=== PATIENT | male | born 1935 | race Caucasian/White ===

== ENCOUNTER 2017-03-12 14:05 | Inpatient (IN) | payer OTHER, SELFPAY ==
[~2017-03-12] VITALS: Ht 180.3 cm; Wt 98.9 kg
[2017-03-12 14:05] VITALS: BP 155/61
[~2017-03-12 14:05] MED LIST: ACETAMINOPHEN325 M1 PO; ACTOS 30 MG TAB30 MG PO; ADULT LOW DOSE81 MG PO; ADVAIR 250-501 EACH; ADVAIR 250-501 EACH IH; ADVAIR 250-501 EACH INH; ADVAIR HFA 1112 UNIT INH; AFEDITAB CR60 M1 PO; AFEDITAB CR60 MG PO; ALDACTONE50 MG PO; ALLOPURINOL 30300 M1 PO; ALLOPURINOL 30300 M3 PO; ALPRAZOLAM 0.0.25 M1 PO; AMLODIPINE BESYL5 M1 PO; ANALGESIC325 MG PO; ASPIRIN EC81 M1 PO; AZITHROMYCIN 2250 MG PO; Advair INH; B COMPLETE1 EACH PO; B COMPLEX1 EAC1; B-100 COMPLEX1 EAC1 PO; B12INJ INJECTION; BACTROBAN CREAM30 G1 TOP; CAPOTEN; CARBAMAZEPINE100 MG PO; CARBAMAZEPINE200 M2 PO; CATAPRES0.2 MG PO; CENTRUM SILVER1 EAC2 PO; CIPRO250 M1 PO; CIPROFLOXACIN500 M1 PO; CLONAZEPAM 0.50.5 M1 PO; CLONAZEPAM 1 MG1 M1 PO; CLONAZEPAM PO; COLACE100 MG PO; COZAAR 25 MG TA25 M1 PO; COZAAR 50 MG TA50 M1 PO; COZAAR 50 MG TA50 M2 PO; CRESTOR10 MG PO; CRESTOR5 MG PO; DELTASONE20 MG PO; DEPO-TESTO200 MG/1 M IM; DEPO-TESTO200 MG/1 M INJECTION; DOXAZOSIN MESYLA4 MG PO; DULERA 100 MCG/13 GM INH; DUONEB 2.5-0.5 M3 ML INH; DUONEB 2.5-0.5 M3 ML PO; FISH OIL 1,001000 M2 PO; FISH OIL 1,2001 EAC3 PO; FISH OIL 1,2001 EAC4 PO; FISH OIL500 M1 PO; FISHOIL PO; FLAGYL500 MG PO; FUROSEMIDE 40 M40 MG PO; GABAPENTIN100 MG PO; GEMFIBROZIL 60600 MG PO; GLIPIZIDE ER5 MG PO; GLIPIZIDE5 MG PO; GLUCOTROL5 MG PO; HEALTHY EYES C1 EACH PO; HYDRALAZINE 2525 MG PO; HYDROCODON-ACE1 EAC7 PO; HYDROCODONE-AP1 EAC6 PO; I-CAPS AREDS S1 EACH PO; ICAPS TABLET1 EACH PO; IMDUR 30 MG TAB30 M1; IMDUR 30 MG TAB30 M1 PO; ISOSORBIDE DINI30 MG PO; LAMISIL250 MG PO; LASIX 40 MG TAB40 M1 PO; LASIX 40 MG TAB40 M2 PO; LASIX 40 MG TAB40 MG GT; LASIX 80 MG TAB80 MG PO; LEVAQUIN 250 M250 MG PO; LEVAQUIN 500 M500 M1 PO; LEVAQUIN 500 M500 M2 PO; LEVAQUIN 750 M750 MG PO; LEVOTHROID50 MCG PO; LEVOTHROID75 MCG PO; LEVOTHYROXIN0.112 M1 PO; LEVOTHYROXINE; LEXAPRO 10 MG T10 M1 PO; LEXAPRO PO; LEXAPRO20 MG PO; LIPITOR 20 MG T20 M1 PO; LOPID600 MG PO; LOPRESSOR 50 MG50 M1 PO; LOPRESSOR25 PO; MEDROLDOSEPACK PO; METOLAZONE 2.52.5 M1 PO; METOPROLOL 50 M50 M1 PO; METOPROLOL PO; METOPROLOL SUCC50 MG PO; MIRALAX17 GM PO; MOM PO; NEPHROCAPS SOFT1 CAP PO; NITROGLYCERIN0.4 MG PO; NITROSTAT0.4 M1 SUBLING; NORVASC10 MG PO; NORVASC5 MG PO; NOVOLOG100 UNIT/1 SUBQ; NYSTATIN 1100000 U/M PO; OMEGA-31000 MG PO; OMEPRAZOLE40 MG PO; PLAVIX 75 MG TA75 MG PO; POTASSIUM20 PO; PREDNISONE 10 M10 M1; PREDNISONE 10 M10 M1 PO; PREDNISONE 10 M10 MG PO; PREDNISONE 20 M20 M1 PO; PREDNISONE 20 M20 MG PO; PREDNISONE50 MG PO; PROSCAR 5MG TABL5 MG PO; PROTONIX40 M2 PO; REMERON15 MG PO; RESTORIL15 MG PO; SPIRIVA INH; SPIRONOLACTONE50 MG PO; SYNTHROID75 MCG PO; TEGRETOL XR100 MG PO; TESSALON PERLE100 MG PO; TOPROL XL25 MG PO; TOPROL XL50 MG PO; TRAMADOL 50 MG50 MG PO; TRIAMCINOLONE A80 GM TOP; TRIPHROCAPS SOFT1 MG PO; ULTRA B-100 CO1 EAC1 PO; VITAMIN B COMP1 EAC7 PO; VITAMIN D 5050000 I1 PO; VITAMIN D1000 UNI1 PO; VITAMIN D35000 UNI1 PO; XANAX 0.25 MG0.25 MG PO; ZANTAC 150MG T150 MG PO; ZOFRAN ODT4 MG PO; ZOLOFT 50 MG TA50 M1 PO
[2017-03-12 14:36] LABS: ABSOLUTE EOSINOPHILS 0.1 thou/uL (0.0-0.7); ABSOLUTE LYMPHOCYTES 0.9 thou/uL (0.8-5.3); ABSOLUTE MONOCYTES 0.6 thou/uL (0.0-1.2); ABSOLUTE NEUTROPHILS 4.8 thou/uL (1.6-8.1); BASOPHILS 0.7 %; EOSINOPHILS 1.6 %; HEMATOCRIT 29.7 % (42.0-52.0); HEMOGLOBIN 9.9 gm/dL (14.0-18.0); LYMPHOCYTES 14.2 %; MCH 31.5 pg (26.0-34.0); MCHC 33.4 g/dL (28.0-37.0); MCV 94.4 fL (80.0-100.0); MONOCYTES 9.2 %; MPV 9.6 fl. (7.2-11.1); NUCLEATED RBCS 0 /100WBC; PLATELET COUNT* 175 thou/uL (150-400); POLYS 74.3 %; RBC 3.15 mil/uL (4.50-6.00); RDW-CV 17.3 % (10.5-14.5); WBC 6.5 thou/uL (4.0-11.0)
[2017-03-12 14:44] LABS: INR 1.1; PROTIME 10.7 Seconds (9.20-11.50)
[2017-03-12 14:55] LABS: ANION GAP 10 mmol/L (7-16); BUN 27 mg/dL (7-18); CALCIUM 8.4 mg/dL (8.5-10.1); CHLORIDE 98 mmol/L (98-107); CO2 31 mmol/L (21-32); CREATININE 4.3 mg/dL (0.6-1.3); GLUCOSE 100 mg/dL (70-99); POTASSIUM 4.3 mmol/L (3.5-5.1); SODIUM 139 mmol/L (136-145)
[2017-03-12 14:59] LABS: ALBUMIN 3.6 g/dL (3.4-5.0); ALKALINE PHOSPHATASE 76 U/L (46-116); LIPASE 496 U/L (73-393); MAGNESIUM 1.9 mg/dL (1.8-2.4); NT-PRO BRAIN NAT PEPTIDE 6717 pg/mL (<300); SGOT 24 U/L (15-37); SGPT 18 U/L (30-65); TOTAL BILIRUBIN 0.3 mg/dL (<0.1-1.0); TOTAL PROTEIN 6.7 g/dL (6.4-8.2); TROPONIN-I LEVEL <0.06 ng/mL (<0.06)
--- NOTE | 2017-03-12 15:56 | EKG ---
[place] [address] ELECTROCARDIOGRAM REPORT Name: MERY BARKSDALE Room: [facility]#: [id number] Admission: 03/12/17 Attend Phys: Discharge: Date of : 34 Report #: [id number] THIS REPORT FOR: //name// [facility] ED Test Date: 2017-03-12 Test Time: 14:14:02 Pat Name: MERY BARKSDALE Department: Room: Gender: Unix Developer: : 1935 Requested By: Alfa Vega Order Number: [id number] MD: Raffi Johnson Measurements Intervals [place] Rate: 63 P: 41 [place]: 268 QRS: -15 QRSD: 129 T: 223 QT: 437 QTc: 448 Interpretive Statements Sinus rhythm Multiple ventricular premature complexes Prolonged [place] interval Left bundle branch block Compared to ECG 02/18/2017 16:26:13 Ventricular premature complex(es) now present Electronically Signed On 03-12-2017 15:56:12 APPRENTICE by Raffi Johnson [email or web address] <ELECTRONICALLY SIGNED> By: Raffi Johnson MD, [facility] 03/12/17 1556 1414 141 Raffi Johnson MD, FACC /EPI
[2017-03-12 17:48] VITALS: BP 158/67
[2017-03-12 18:00] VITALS: BP 158/87
[2017-03-12 20:20] VITALS: BP 139/48
[2017-03-12] MEDS ORDERED: METOLAZONE 2.52.5 MG PO (21:08)
[2017-03-12] MEDS ORDERED: TRIPHROCAPS SOFT1 MG PO (21:08)
[2017-03-13 00:02] VITALS: BP 144/53
[2017-03-13 01:17] LABS: HEMATOCRIT 28.3 % (42.0-52.0); HEMOGLOBIN 9.4 gm/dL (14.0-18.0); MCH 31.5 pg (26.0-34.0); MCHC 33.2 g/dL (28.0-37.0); MCV 95.2 fL (80.0-100.0); MPV 9.8 fl. (7.2-11.1); RBC 2.97 mil/uL (4.50-6.00); WBC 6.3 thou/uL (4.0-11.0)
[2017-03-13 01:33] LABS: ANION GAP 9 mmol/L (7-16); BUN 36 mg/dL (7-18); CALCIUM 8.2 mg/dL (8.5-10.1); CHLORIDE 100 mmol/L (98-107); CO2 30 mmol/L (21-32); CREATININE 5.2 mg/dL (0.6-1.3); GLUCOSE 88 mg/dL (70-99); SODIUM 139 mmol/L (136-145); TROPONIN-I LEVEL <0.06 ng/mL (<0.06)
[2017-03-13 08:50] VITALS: BP 155/50
[2017-03-13 11:30] VITALS: BP 152/56
[2017-03-13 15:30] VITALS: BP 175/59
--- NOTE | 2017-03-13 16:24 | EKG ---
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 FITZGERALD : 1935 Requested By: Deyanira Villa Order Number: [id number] Keysha MD: Raffi Johnson Measurements Intervals [place] Rate: 61 P: 50 MS: 278 QRS: -8 QRSD: 143 T: 210 QT: 491 QTc: 495 Interpretive Statements Sinus rhythm Ventricular bigeminy Prolonged [place] interval Probable left atrial enlargement Left bundle branch block Compared to ECG 03/12/2017 14:14:02 No significant changes Electronically Signed On 03-13-2017 16:24:35 EMT/DISPATCHER by Raffi Johnson [email or web address] <ELECTRONICALLY SIGNED> By: Raffi Johnson MD, [facility] 03/13/17 1624 1605 1605 Raffi Johnson MD, [facility] /EPI
[2017-03-13 19:15] VITALS: BP 132/49
[2017-03-14] VITALS: BP 145/50
[2017-03-14 04:00] VITALS: BP 141/52
[2017-03-14 05:13] LABS: HEMATOCRIT 27.4 % (42.0-52.0); HEMOGLOBIN 9.4 gm/dL (14.0-18.0); MCH 32.4 pg (26.0-34.0); MCHC 34.2 g/dL (28.0-37.0); MCV 94.6 fL (80.0-100.0); MPV 10.1 fl. (7.2-11.1); RBC 2.9 mil/uL (4.50-6.00); RDW-CV 17.4 % (10.5-14.5)
[2017-03-14 05:37] LABS: CALCIUM 7.9 mg/dL (8.5-10.1); MAGNESIUM 1.8 mg/dL (1.8-2.4); POTASSIUM 4.6 mmol/L (3.5-5.1)
[2017-03-14 05:38] LABS: CREATININE 7.1 mg/dL (0.6-1.3)
--- NOTE | 2017-03-14 11:00 | CON ---
[address] [address] CONSULTATION Name: APOLONIAMERYBHAVESH ROUSE Room: [address] ADM IN M.R.#: [id number] Admission: 03/12/17 Attend Phys: Butch Rueda Discharge: Date of : 34 Report #: [id number] THIS REPORT FOR: //name// CC: Linda Villa The patient is at [facility] room 209. I am asked to see this 81-year-old gentleman at the request of Dr. Villa for management of end-stage renal disease. CHIEF COMPLAINT: Chest pain. HISTORY OF PRESENT ILLNESS: The patient had chest pain on dialysis. He had some nausea as well. He was taken to the ED and subsequently admitted. The patient was assessed as having acute pancreatitis in addition to his chronic diagnoses. He is receiving pain meds. The patient is well known to me from multiple prior admissions. He has a past medical history of CKD stage IV until he progressed to ESRD this past fall and started dialysis. He has COPD, type 2 DM. He has had a fistula placed in his left forearm. He has had recurrent admissions prior to starting dialysis for shortness of air and pulmonary edema. PAST MEDICAL HISTORY: He has combined systolic and diastolic CHF, hypertension, history of small-bowel obstruction, CAD with CABG 20 years ago, hip replacement, neuropathy, depression and cholecystectomy. FAMILY HISTORY: Not remarkable at his age of 81. SOCIAL HISTORY: He is a former tobacco user. No alcohol or recreational drugs. ALLERGIES: SULFA. RECENT MEDICATIONS: Have included Spiriva 1 inhalation daily, gabapentin 100 mg t.i.d., Advair Diskus 250/50 one inhalation b.i.d., doxazosin 2 mg b.i.d., carbamazepine 200 mg 2 tabs b.i.d., levothyroxine 0.112 mg daily, finasteride 5 mg daily, acetaminophen/hydrocodone 5/325 one b.i.d., folic acid and B complex and C in the form of Nephrocaps 1 daily, furosemide 80 mg b.i.d., mirtazapine 15 mg tablets 2 daily, Triphrocaps 1 mg daily, hydralazine 25 mg 2 q.i.d., fish oil 1200 mg daily, Nitrostat 0.4 mg subQ daily p.r.n., metoprolol XL 25 mg of succinate daily, gemfibrozil 600 mg daily, clonazepam 0.5 mg b.i.d., allopurinol 150 mg daily, aspirin 81 mg enteric coated daily, atorvastatin 20 mg daily. REVIEW OF SYSTEMS: HEENT: No recent changes in vision or hearing. CARDIAC: He has had some chest and upper abdomen discomfort. PULMONARY: Denies any shortness of air. GASTROINTESTINAL: Upper abdominal and lower chest pain, no nausea, [place] [address] CONSULTATION Name: MERY BARKSDALE Room: [address] IN M.R.#: [id number] Admission: 03/12/17 Attend Phys: Butch Rueda Discharge: Date of : 34 Report #: [id number] diarrhea. GENITOURINARY: ESRD, no new symptoms. HEMATOLOGIC AND LYMPHATIC: Anemia, CKD, no malignancies. MUSCULOSKELETAL: Weakness. PSYCHIATRIC: Negative. ENDOCRINE: Positive diabetes. No thyroid disease. NEUROLOGIC: No TIA, CVA, Parkinson's disease or seizure disorder. He does have neuropathy. His other 14-point review of systems is as above. PHYSICAL EXAMINATION: GENERAL: He does awaken and a bit confused. VITAL SIGNS: Show that he is presently afebrile, heart rate 50s, respirations 18, blood pressure 152/56. HEENT: He is normocephalic, atraumatic. CHEST: Generally clear. HEART: S1, S2. No rubs. ABDOMEN: Soft, positive bowel sound. EXTREMITIES: No edema. Negative Homans. His femorals are 2+ distally. Extremities perfused. NEUROLOGIC: Cranial nerves, sensory, motor appear to be at recent baseline. LABORATORY DATA: Shows a white count of 6300, hemoglobin 9.4, hematocrit 28.3, platelets 159,000. Coags show PT of 10.7, INR 1.1. White count 6300, hemoglobin 9.4, hematocrit 28.3, platelets 159,000. IMAGING STUDIES: Include a chest x-ray that shows IJ double lumen central line unchanged on the right. He does not have any evidence of CHF. He has clearing of his prior noted right basilar infiltrate. IMPRESSION: 1. Chest and abdominal discomfort, possible pancreatitis per primary service being evaluated. 2. SSS with abnormal EKG on admission. 3. End-stage renal disease, on Friday, Friday, Friday dialysis. He did dialyze yesterday. 4. Hypertension. 5. Type 2 diabetes mellitus. 6. Neuropathic pain. 7. Anemia. 8. Chronic kidney disease. 9. History of ischemic cardiomyopathy. 10. Hyperlipidemia. 11. Chronic obstructive pulmonary disease. 12. History of atrial fibrillation. 13. Coronary artery disease with coronary artery bypass surgery over 20 [place] [address] CONSULTATION Name: MERY BARKSDALE Room: [address] IN [facility].#: [id number] Admission: 03/12/17 Attend Phys: Butch Rueda Discharge: Date of : 34 Report #: [id number] 14. Chronic systolic congestive heart failure. PLAN: We will manage renal and dialysis needs. He is due for dialysis tomorrow. We will follow labs. Further recommendations to follow. <ELECTRONICALLY SIGNED> By: Amaya Hennessy MD 03/14/17 1100 1244 1549Amaya Hennessy MD /nt
[2017-03-14 11:31] VITALS: BP 144/49
[2017-03-14 18:02] VITALS: BP 137/58
[2017-03-14 20:00] VITALS: BP 131/44
[2017-03-15] VITALS: BP 120/50
[2017-03-15 04:00] VITALS: BP 130/47
[2017-03-15 05:35] LABS: ALBUMIN 3.2 g/dL (3.4-5.0); CALCIUM 8.4 mg/dL (8.5-10.1); MAGNESIUM 1.9 mg/dL (1.8-2.4); PHOSPHORUS* 5.3 mg/dL (2.5-4.9); POTASSIUM 5.2 mmol/L (3.5-5.1)
[2017-03-15 05:40] LABS: CREATININE 5.8 mg/dL (0.6-1.3)
[2017-03-15 06:35] LABS: HEMATOCRIT 30.2 % (42.0-52.0); MCH 31.6 pg (26.0-34.0); MCHC 33.1 g/dL (28.0-37.0); MCV 95.6 fL (80.0-100.0); MPV 9.5 fl. (7.2-11.1); RBC 3.16 mil/uL (4.50-6.00); RDW-CV 18.1 % (10.5-14.5); WBC 6.3 thou/uL (4.0-11.0)
[2017-03-15 08:00] VITALS: BP 124/48
[2017-03-15 11:30] VITALS: BP 118/50
[2017-03-15 12:48] VITALS: BP 118/50
[2017-03-15] MEDS ORDERED: TOPROL XL50 MG PO (14:22)
[2017-04-07] MEDS ORDERED: REMERON15 MG PO (09:29)
[2017-04-07] MEDS ORDERED: CARBAMAZEPINE200 M5 PO (09:30)
[2017-04-07] MEDS ORDERED: KLONOPIN0.5 MG PO (09:31)
[2017-04-07] MEDS ORDERED: CALCIUM ACETAT667 MG PO (09:31)
[2017-04-07] MEDS ORDERED: NORCO 5-325 TA1 EACH PO (09:32)
== END 2017-03-15 15:45 | disposition home or self-care (01) | DRG 438 ==
LOC: M.ERS 14:05 → M.2W 16:19 → M.TBA-ER 16:19 → M.2W 17:18
PROVIDERS: Emergency Medicine Emergency Medical Services; Internal Medicine; ADMIT Internal Medicine
DX: K85.90 Acute pancreatitis without necrosis or infection, unspecified (principal); N18.6 End stage renal disease; I13.2 Hypertensive heart and chronic kidney disease with heart failure and with stage 5 chronic kidney disease, or end stage renal disease; I50.22 Chronic systolic (congestive) heart failure; I49.5 Sick sinus syndrome; E11.22 Type 2 diabetes mellitus with diabetic chronic kidney disease; E11.40 Type 2 diabetes mellitus with diabetic neuropathy, unspecified; F32.9 Major depressive disorder, single episode, unspecified; Z96.641 Presence of right artificial hip joint; I25.5 Ischemic cardiomyopathy; I25.10 Atherosclerotic heart disease of native coronary artery without angina pectoris; J44.9 Chronic obstructive pulmonary disease, unspecified; I49.3 Ventricular premature depolarization; E78.5 Hyperlipidemia, unspecified; D63.1 Anemia in chronic kidney disease; I48.91 Unspecified atrial fibrillation; Z99.2 Dependence on renal dialysis; Z88.2 Allergy status to sulfonamides; Z95.1 Presence of aortocoronary bypass graft; Z95.5 Presence of coronary angioplasty implant and graft; Z87.891 Personal history of nicotine dependence; Z90.49 Acquired absence of other specified parts of digestive tract; Z79.82 Long term (current) use of aspirin; Z82.49 Family history of ischemic heart disease and other diseases of the circulatory system; Z80.9 Family history of malignant neoplasm, unspecified

== ENCOUNTER → 2017-04-15 | Day surgery (SDC) | payer OTHER, SELFPAY ==
[~2017-04-15] MED LIST changes: +CALCIUM ACETAT667 MG PO; +CARBAMAZEPINE200 M5 PO; +CEFUROXIME500 MG PO; +KLONOPIN0.5 MG PO; +METOLAZONE 2.52.5 MG PO; +NORCO 5-325 TA1 EACH PO; +VANCO 500500 MG/100 IV; +ZOFRAN4 MG PO
--- NOTE | 2017-04-25 16:00 | OP ---
[facility] [address] [place] [address] OPERATIVE REPORT Name: APOLONIAMERY ROUSE Room: [facility].#: [id number] Admission: 04/15/17 Attend Phys: Saman Block Discharge: Date of : 34 Report #: [id number] THIS REPORT FOR: //name// CC: Sean Bundy DATE OF SERVICE: 04/15/2017 PREOPERATIVE DIAGNOSIS: End-stage renal disease, requiring hemodialysis. POSTOPERATIVE DIAGNOSIS: End-stage renal disease, requiring hemodialysis. SURGEON: Sean Montes DO MANAGER ADVANCED: Ivelisse Tirado PA-C PROCEDURE: Left upper extremity brachiobasilic AV graft. ESTIMATED BLOOD LOSS: 50 mL. SPECIMEN: None. COMPLICATIONS: None. CONDITION: Stable. DISPOSITION: Home. INDICATIONS FOR THE PROCEDURE AND CONSENT: The patient is an 81-year-old male with end-stage renal disease, requiring hemodialysis. The patient had a brachiocephalic AV fistula, which failed to mature and developed due to outflow cephalic vein, diminutive vein. This was determined on a followup fistulogram. Recommendation for left upper extremity AV graft was made. Risks and benefits were discussed including infection, bleeding, need for additional procedures including additional dialysis access. The patient wished to proceed, was consented and scheduled. PROCEDURE IN DETAIL: After timeout was performed, the patient was placed in supine position with sterile prep and drape of the left upper extremity. Ultrasound was utilized to determine the location of the brachial artery proximal to the previous AV fistula as well to assure that there was adequate axillary vein outflow. The axillary vein was identified and noted to be compressible. The basilic vein was noted to be large. I did consider a primary basilic vein AV fistula. However, with the patient's age, requiring secondary procedures such as mobilization and transposition would likely be necessary and decided that continuing with the plan for AV graft [place] [address] OPERATIVE REPORT Name: MERY BARKSDALE Room: [facility]#: [id number] Admission: 04/15/17 Attend Phys: Saman Block Discharge: Date of : 34 Report #: [id number] made 2 longitudinal incisions, one overlying the basilic, axillary vein junction and overlying the brachial artery. Dissection was carried down to the brachial artery using Bovie electrocautery and Metzenbaum scissors. The brachial artery was controlled proximally and distally with vessel loops. The attention was then turned to the outflow basilic vein. This was fairly deep, somewhat difficult to identify but I did identify the basilic vein. It was noted to be large and compressible and healthy. I then controlled it proximally and distally with vessel loops. I performed tunneling with a 10 mm head between the 2 incisions. I then tunneled a 4-7 mm tapered Acuseal graft between the two. Then I systemically heparinized the patient with 6000 units of heparin. I dressed the inflow anastomosis first. I clamped the brachial artery proximally and distally with small profunda clamps and an 11 blade scalpel and Kilpatrick scissors were used to make longitudinal arteriotomy. The graft was fashioned to the gan and then an end-to-side fashion was sutured in place with 5-0 Prolene. Blood flow was restored through the brachial artery and the anastomosis was noted to be hemostatic. I clamped the graft just beyond the anastomosis. I then flushed the graft with hep saline. I then turned to the outflow anastomosis. The basilic vein was controlled proximally and distally with vessel loops. A longitudinal venotomy was made with 11 blade and Kilpatrick scissors and end-to-side anastomosis then created using again 5-0 Prolene. Blood flow was then restored through the graft. The anastomosis was noted to be hemostatic. There was a thrill beyond the outflow anastomosis. Doppler signals above and below the graft demonstrated only mild change in hemodynamics above and below the anastomosis. The radial artery demonstrated a signal. They did not augment significantly with graft compression. Being satisfied of the graft, both incisions were copiously irrigated with antibiotic saline and closed in layers using 2-0 Vicryl, 3-0 Vicryl and 4-0 Monocryl suture. Dermabond dressings were applied. The patient tolerated the procedure well. Lap, needle, and instrument counts correct. <ELECTRONICALLY SIGNED> By: Sean Montes DO 04/25/17 1600 1623 1730Sean Montes DO /nt
== END | disposition home or self-care (01) ==
LOC: M.SUR 08:50
DX: I13.11 Hypertensive heart and chronic kidney disease without heart failure, with stage 5 chronic kidney disease, or end stage renal disease (principal); N18.6 End stage renal disease; I25.10 Atherosclerotic heart disease of native coronary artery without angina pectoris; I50.32 Chronic diastolic (congestive) heart failure; E11.22 Type 2 diabetes mellitus with diabetic chronic kidney disease; D64.9 Anemia, unspecified; J44.9 Chronic obstructive pulmonary disease, unspecified; Z88.2 Allergy status to sulfonamides; Z99.2 Dependence on renal dialysis; Z79.82 Long term (current) use of aspirin; Z79.899 Other long term (current) drug therapy

== ENCOUNTER 2017-04-21 16:30 | Inpatient (IN) | payer OTHER, SELFPAY ==
[~2017-04-21] VITALS: Ht 175.3 cm; Wt 98.9 kg
--- NOTE | ~2017-04-21 | EKG ---
[place] [address] ELECTROCARDIOGRAM REPORT Name: MERY BARKSDALE Room: [place] [address] ADM IN M.R.#: [id number] Admission: 04/21/17 Attend Phys: Grupo Estrella MD Discharge: Date of : 34 Report #: [id number] THIS REPORT FOR: //name// [facility] ED Test Date: 2017-04-21 Test Time: 16:42:08 Pat Name: MERY BARKSDALE Department: Room: [place] [address] Gender: M Social Professionals: [address] : 1935 Requested By: Grupo Estrella Order Number: [id number] Reading MD: Measurements Intervals [place] Rate: 104 P: 217 DC: 165 QRS: 29 QRSD: 148 T: 238 QT: 390 QTc: 513 Interpretive Statements Sinus or ectopic atrial tachycardia Left bundle branch block Compared to ECG 03/12/2017 16:05:56 Sinus rhythm no longer present Ventricular premature complex(es) no longer present First degree AV block no longer present [email or web address] By: 164 1642 [place] /EPI
[~2017-04-21 16:30] MED LIST changes: -CEFUROXIME500 MG PO; -VANCO 500500 MG/100 IV; -ZOFRAN4 MG PO
[2017-04-21 16:41] VITALS: BP 100/43
[2017-04-21 17:14] LABS: HEMATOCRIT 36.1 % (42.0-52.0); HEMOGLOBIN 11.9 gm/dL (14.0-18.0); MCH 33.1 pg (26.0-34.0); MCV 100.6 fL (80.0-100.0); MPV 10.2 fl. (7.2-11.1); NUCLEATED RBCS 0 /100WBC; PLATELET COUNT* 156 thou/uL (150-400); RBC 3.59 mil/uL (4.50-6.00); RDW-CV 17.8 % (10.5-14.5); WBC 12.2 thou/uL (4.0-11.0)
[2017-04-21 17:24] LABS: APTT 26.6 Seconds (25.0-31.3); CALCIUM 8.8 mg/dL (8.5-10.1); CREATININE 3.9 mg/dL (0.6-1.3); INR 1.1; POTASSIUM 5.1 mmol/L (3.5-5.1)
[2017-04-21 17:28] LABS: ALBUMIN 3.5 g/dL (3.4-5.0); TOTAL BILIRUBIN 0.3 mg/dL (<0.1-1.0); TOTAL PROTEIN 7.1 g/dL (6.4-8.2)
[2017-04-21 17:50] LABS: ABSOLUTE LYMPHOCYTES 1.5 thou/uL (0.8-5.3); ABSOLUTE MONOCYTES 0.6 thou/uL (0.0-1.2); ABSOLUTE NEUTROPHILS 10.1 thou/uL (1.6-8.1)
[2017-04-21 17:51] LABS: PLATELET ESTIMATE ADEQUATE
[2017-04-21 18:37] LABS: INFLUENZA A ANTIGEN None Detected (None Detect); INFLUENZA B ANTIGEN None Detected (None Detect)
--- NOTE | 2017-04-21 20:25 | NUR ---
CALL PLACED TO DR SAWANT CONCERNING PT'S LOWER BP. APRESOLINE MEDICATION HELD
[2017-04-21 20:50] VITALS: BP 133/35
[2017-04-22] VITALS: BP 104/35
[2017-04-22 04:00] VITALS: BP 126/41
[2017-04-22 05:35] LABS: HEMATOCRIT 36.7 % (42.0-52.0); HEMOGLOBIN 11.9 gm/dL (14.0-18.0); MCHC 32.5 g/dL (28.0-37.0); MCV 101.8 fL (80.0-100.0); MPV 11.2 fl. (7.2-11.1); NUCLEATED RBCS 0 /100WBC; PLATELET COUNT* 163 thou/uL (150-400); RDW-CV 18.1 % (10.5-14.5); WBC 21.1 thou/uL (4.0-11.0)
--- NOTE | 2017-04-22 05:46 | NUR ---
PT ADMITTED FROM ER. HISTORY AND ASSESSMENT COMPLETE. SR ON MONITOR. DIALYSIS PORT TO R CHEST. DIALYSIS M/W/F. HOME C PAP PLACED BY RT. O2 2L NC WHILE AWAKE. PT FEBRILE UNTIL EARLY THIS AM,102.3. NEW IV PLACED AFTER PT DISLODGED PREVIOUS ONE. DENIES PAIN. FALL PRECAUTIONS IN PLACE INCLUDING BED ALARM. CALL LIGHT IN REACH. BED IN LOWEST POSITION. PROGRESSING TOWARDS GOALS.
[2017-04-22 05:59] LABS: CALCIUM 8.8 mg/dL (8.5-10.1)
[2017-04-22 06:06] LABS: CREATININE 5.2 mg/dL (0.6-1.3)
[2017-04-22 06:28] LABS: ABSOLUTE LYMPHOCYTES 1.1 thou/uL (0.8-5.3); ABSOLUTE MONOCYTES 0.2 thou/uL (0.0-1.2); ABSOLUTE NEUTROPHILS 19.8 thou/uL (1.6-8.1); ANISOCYTOSIS 1+; PLATELET ESTIMATE ADEQUATE; POIKILOCYTOSIS 1+
[2017-04-22 08:00] VITALS: BP 117/31
[2017-04-22 11:35] VITALS: BP 106/40
--- NOTE | 2017-04-22 13:36 | NUR ---
CM SPOKE TO THE PATIENT TO DISCUSS HOME SITUATION, DISCHARGE PLANNING, AND TO INFORM OF THE ROLE OF CM. PATIENT ALERT, ORIENTED, AND INDEPENDENT WITH ADL'S. PATIENT RESIDES AT HOME ALONE. PATIENT DRIVES. PATIENT RECIEVES DIALYSIS -- AT [facility] AND DRIVES HIMSELF TO HIS APPOINTMENTS. PATIENT HAS HOME O2 PROVIDED BY [facility]. PATIENT HAS A LIFE ALERT. PATIENT PLANS TO RETURN HOME AT D/C AND IS OPEN TO . CM WILL REMAIN AVAILABLE TO ASSIST AND FOLLOW NEEDED.
[2017-04-22 13:59] LABS: URINE BILIRUBIN NEGATIVE (Negative); URINE BLOOD TRACE (Negative); URINE CLARITY CLEAR; URINE COLOR YELLOW; URINE GLUCOSE-RANDOM TRACE (Negative); URINE KETONES TRACE (Negative); URINE LEUKOCYTES-REFLEX NEGATIVE (Negative); URINE NITRITE-REFLEX NEGATIVE (Negative); URINE PROTEIN 3+ (Negative); URINE SPECIFIC GRAVITY 1.025 (1.005-1.030); URINE UROBILINOGEN 0.2 E.U./dl (0.2-1.0)
[2017-04-22 14:14] LABS: SQUAMOUS 0-3 Few /LPF (0-3); URINE RBC 0-2 Rare /HPF (0-2); URINE WBC-REFLEX 0-5 Rare /HPF (0-5)
[2017-04-22 14:15] LABS: BACTERIA-REFLEX 1-9 Few /HPF (None Seen); MUCUS 0-3 Light strn/LPF (None Seen)
[2017-04-22 14:16] LABS: CRYSTALS None Seen /LPF (None Seen); FINE GRANULAR CASTS 0-3 Few /LPF (None Seen)
[2017-04-22 15:59] VITALS: BP 143/47
--- NOTE | 2017-04-22 18:25 | NUR ---
ASSUMED RESPONSIBILITY OF PT THIS AM PT IS ALERT AND ORIENTED BUT FORGETFUL AT TIMES PT IS ON 2L NC SOA NOTED WHEN NOT SITTING UP PT WITH GOOD APPETITE NO ORDERS FOR ACCUCHECKS ACHS PT STATES HE TAKES IT AT HOME BUT IT'S CONTROLLED WITH DIET MRSA AND URINE COLLECTED, WAITING ON SPUTUM STILL 1D OR BBB ON THE MONITOR UP SBA WITH A WALKER TO BSC OR TOILET UP IN CHAIR FOR ABOUT AN HOUR DENIES ANY PAIN OR DISCOMFORT
[2017-04-22 20:00] VITALS: BP 146/43
[2017-04-23] VITALS: BP 141/48
[2017-04-23 04:00] VITALS: BP 157/62
--- NOTE | 2017-04-23 05:27 | NUR ---
PT CARE ASSUMED AFTER REPORT. ASSESSMENT COMPLETE. SR/1ST DEGREE ON MONITOR. O2 2L NC. DENIES PAIN. CONTACT PRECAUTIONS INITIATED R/T +MRSA. FALL PRECAUTIONS IN PLACE INCLUDING BED ALARM. CALL LIGHT IN PLACE. BED IN LOWEST POSITION. PROGRESSING TOWARDS GOALS.
[2017-04-23 05:29] LABS: ABSOLUTE LYMPHOCYTES 0.6 thou/uL (0.8-5.3); ABSOLUTE MONOCYTES 0.3 thou/uL (0.0-1.2); ABSOLUTE NEUTROPHILS 12.9 thou/uL (1.6-8.1); BASOPHILS 0.1 %; HEMATOCRIT 32.3 % (42.0-52.0); HEMOGLOBIN 10.6 gm/dL (14.0-18.0); LYMPHOCYTES 4.2 %; MCH 33.3 pg (26.0-34.0); MCHC 32.8 g/dL (28.0-37.0); MCV 101.5 fL (80.0-100.0); MONOCYTES 2.5 %; MPV 10.8 fl. (7.2-11.1); NUCLEATED RBCS 0 /100WBC; PLATELET COUNT* 143 thou/uL (150-400); POLYS 93.2 %; RBC 3.18 mil/uL (4.50-6.00); RDW-CV 18.3 % (10.5-14.5); WBC 13.8 thou/uL (4.0-11.0)
[2017-04-23 05:44] LABS: CALCIUM 8.3 mg/dL (8.5-10.1); TOTAL BILIRUBIN 0.3 mg/dL (<0.1-1.0); TOTAL PROTEIN 6.5 g/dL (6.4-8.2)
[2017-04-23 05:52] LABS: CREATININE 6.4 mg/dL (0.6-1.3)
[2017-04-23 08:00] VITALS: BP 160/66
[2017-04-23 11:30] VITALS: BP 157/62
--- NOTE | 2017-04-23 11:33 | CON ---
[address] [address] CONSULTATION Name: MERY BARKSDALE Room: [place] [address] ADM IN M.R.#: [id number] Admission: 04/21/17 Attend Phys: Grupo Estrella MD Discharge: Date of : 34 Report #: [id number] THIS REPORT FOR: //name// CC: Grupo Bundy DATE OF SERVICE: 04/22/2017 ATTENDING PHYSICIAN: Grupo Estrella M.D. REASON FOR EVALUATION: Pneumococcal pneumonitis. HISTORY OF PRESENT ILLNESS: Chart reviewed, patient examined. This is an 81-year-old gentleman with fairly extensive medical history, has known chronic obstructive pulmonary disease, has cardiomyopathy with history of congestive heart failure, presented with progressive dyspnea, weakness, did apparently have a fairly abrupt onset of shaking chills, and subsequently high fevers. He was found to be quite ill. As part of the evaluation, creatinine was elevated at 3.9. Chest x-ray showed cardiomegaly, scattered patchy bilateral opacities. Lactic acid was 1.7. Initially, blood cultures were collected, now with growth of gram-positive diplococci. He is overall feeling somewhat better. He is afebrile this a.m. after T-max of 102.5. He is not encephalopathic, denies significant gastrointestinal-related complaints. ALLERGIES: SULFA, WHICH CAUSES PRURITUS. CURRENT MEDICATIONS: Include vancomycin, levothyroxine, aspirin, allopurinol, pantoprazole, calcium acetate, gabapentin, clonazepam, mirtazapine, atorvastatin and did receive a dose of ceftriaxone, Tamiflu and levofloxacin previously. PAST MEDICAL HISTORY: As noted above, has some vasculopathy with known coronary artery disease, previous aortocoronary bypass grafting, some stenting, has diabetes mellitus, chronic obstructive pulmonary disease, supplemental O2 at 2 liters. Does have end-stage renal disease, on thrice weekly hemodialysis, hypertension, peripheral neuropathy, depression. SOCIAL HISTORY: Nonsmoker, no ethanol. FAMILY HISTORY: Noncontributory. REVIEW OF SYSTEMS: As above. PHYSICAL EXAMINATION: GENERAL: He is pleasant, alert, cooperative, in mild to moderate distress, appears somewhat chronically ill, mildly undernourished. VITAL SIGNS: Temperature max 102.5, more recently 99, pulse 72, [place] [address] CONSULTATION Name: MERY BARKSDALE Room: [address] IN [facility]#: [id number] Admission: 04/21/17 Attend Phys: Grupo Estrella MD Discharge: Date of : 34 Report #: [id number], blood pressure 106/40. SKIN: Warm. NECK: Supple. LUNGS: Few scattered coarse breath sounds. HEART: Regular. I do not appreciate any murmur. ABDOMEN: Soft, nontender. It is obese, distended. GENITOURINARY: Deferred. RECTAL: Deferred. LABORATORY DATA: Electrolytes: Sodium 142, potassium 5.0, chloride 103, bicarbonate is 26, anion gap of 13, BUN and creatinine 37 and 5.2. CBC: White count of 21.1, H and H 11.9 and 36.7, platelets of 163. Influenza antigen was negative. Lactic acid 1.7. Liver functions otherwise unremarkable. Albumin of 3.5, total protein 7.1. ASSESSMENT: Pneumococcal septicemia, probably on the basis of initial pneumonitis, is certainly a somewhat classical presentation with high fevers and shaking chills. We will dose with ceftriaxone. We will await confirmation via the blood cultures, may well had influenza as a prodromal illness as well. <ELECTRONICALLY SIGNED> By: Alok Aranda MD 04/23/17 1133 1204 1909Joarnulfo Aranda MD /nt
--- NOTE | 2017-04-23 14:27 | NUR ---
CONTINUE TO FOLLOW. PT STATES HE IS STILL GETTING HH AND THAT [facility] SEES HIM ALSO. CALL TO [facility]. CONFIRMED PT IS CURRENT WITH THEM. THEY WILL NEED ORDERS CALLED AND FAXED AT [place]. CALL TO [facility], LEFT MESSAGE. PT STATES HE HAS BEEN MANAGING FAIRLY WELL AT HOME. PLANS TO RETURN HOME AT [place]. WILL FOLLOW
[2017-04-23 15:44] VITALS: BP 120/39
--- NOTE | 2017-04-23 15:50 | 2DMMODE ---
[place] [address] 2 D/M-MODE ECHOCARDIOGRAM Name: MERY BARKSDALE Room: [place] [address] ADM IN [facility]#: [id number] Admission: 04/21/17 Attend Phys: Grupo Estrella, Discharge: Date of : 34 Date of Service: 04/23/17 1550 Report #: [id number] THIS REPORT FOR: //name// APPROVED REPORT Study performed: 04/23/2017 14:29:03 EXAM: Comprehensive 2D, Doppler, and color-flow Echocardiogram Patient Location: In-Patient Room #: [facility] Status: routine BSA: 2.14 HR: 64 bpm BP: 157/62 mmHg Rhythm: NSR Other Information Study Quality: Good Indications Sepsis Dyspnea 2D Dimensions LVEF(%): 41.55 (>50%) IVSd: 11.46 (7-11mm) LVOT Diam: 19.72 (18-24mm) LVDd: 51.86 mm PWd: 11.58 (7-11mm) Ascending Ao: 31.68 (22-36mm) LVDs: 41.23 (25-40mm) Aortic Root: 30.84 mm Farrar's LVEF: 41.55 % Volumes Left Atrial Volume (Systole) LA ESV Index: 28.30 mL/m2 Aortic Valve AoV Peak Carlitos.: 1.27 m/s AO Peak Gr.: 6.40 mmHg LVOT Max P.76 mmHg AO Mean Gr.: 3.66 mmHg LVOT Mean P.63 mmHg LVOT Max V: 0.83 m/s AO V2 VTI: 29.30 cm LVOT Mean V: 0.61 m/s SANDY (VTI): 2.22 cm2 LVOT V1 VTI: 21.33 [place] [address] 2 D/M-MODE ECHOCARDIOGRAM Name: MERY BARKSDALE Room: [address] IN .R.#: [id number] Admission: 04/21/17 Attend Phys: Grupo Estrella, Discharge: Date of : 34 Date of Service: 04/23/17 1550 Report #: [id number] E/A Ratio: 1.09 MV Decel. Time: 194.76 ms MV E Max Carlitos.: 1.05 m/s MV PHT: 56.48 ms MVA (PHT): 3.90 cm2 TDI E/Lateral E': 8.75 E/Medial E': 15.00 Medial E' Carlitos.: 0.07 m/s Lateral E' Carlitos.: 0.12 m/s Pulmonary Valve PV Peak Carlitos.: 1.23 m/s PV Peak Gr.: 6.01 mmHg Tricuspid Valve TR Peak Gr.: 27.02 mmHg RVSP: 32.00 mmHg Left Ventricle The left ventricle is normal size. There is normal LV segmental wall motion. There is normal left ventricular wall thickness. The left ventricular systolic function is normal. The left ventricular ejection fraction is within the normal range. LVEF is 60%. The left ventricular diastolic function is normal. Right Ventricle The right ventricle is normal size. The right ventricular systolic function is normal. Atria The left atrium size is normal. The right atrium size is normal. Aortic Valve Mild aortic valve sclerosis. No aortic regurgitation is present. There is no aortic valvular stenosis. Mitral Valve Mild mitral annular calcification. Mild mitral regurgitation. No evidence of mitral valve stenosis. Tricuspid Valve The tricuspid valve is normal in structure. Mild tricuspid regurgitation. The RVSP is 30-35 mmHg. Pulmonic Valve The pulmonary valve is normal in structure. [place] [address] 2 D/M-MODE ECHOCARDIOGRAM Name: MERY BARKSDALE Room: [address] IN ..#: [id number] Admission: 04/21/17 Attend Phys: Grupo Estrella, Discharge: Date of : 34 Date of Service: 04/23/17 1550 Report #: [id number] regurgitation. Great Vessels The aortic root is normal in size. IVC is normal in size and collapses with >50% inspiration Pericardium There is no pericardial effusion. <Conclusion> There is normal left ventricular wall thickness. The left ventricular systolic function is normal. The left ventricular ejection fraction is within the normal range. LVEF is 60%. The left ventricular diastolic function is normal. The right ventricle is normal size. The left atrium size is normal. Mild aortic valve sclerosis. No aortic regurgitation is present. There is no aortic valvular stenosis. Mild mitral annular calcification. Mild mitral regurgitation. No evidence of mitral valve stenosis. The tricuspid valve is normal in structure. Mild tricuspid regurgitation. The RVSP is 30-35 mmHg. IVC is normal in size and collapses with >50% inspiration There is no pericardial effusion. There is normal LV segmental wall motion. <ELECTRONICALLY SIGNED> By: Raffi Johnson MD, FACC 04/23/17 1550 1550 1550 Raffi Johnson MD, FACC /INF
--- NOTE | 2017-04-23 19:43 | NUR ---
ASSUMED RESPONSIBILITY OF PT THIS AM PT IS ALERT AND ORIENTED BUT FORGETFUL AND CONFUSED AT TIMES 'LAUGHS IT OUT' DIALYSIS DONE TODAY WITH 3L TAKEN OFF PT DID NOT HAVE FEVER TODAY BLOOD PRESSURES WERE BETTER POSITIVE FOR MRSA ACHS NOW AND INSULIN SLIDING SCALE O2 AT 2L NC AND HOME CPAP AT NIGHT DENIES ANY PAIN
[2017-04-23 20:00] VITALS: BP 135/43
[2017-04-24] VITALS (7 sets, daily range): BP systolic 127–154; BP diastolic 40–56
[2017-04-24 02:07] LABS: HEPATITIS B SURFACE AG Negative (Negative)
--- NOTE | 2017-04-24 05:20 | NUR ---
PT CARE ASSUMED AFTER REPORT. ASSESSMENT COMPLETE. SR/SB ON MONITOR. O2 2L NC. DENIES PAIN. FALL PRECAUTIOS IN PLACE INCLUDING BED ALARM. CALL LIGHT IN REACH. BED IN LOWEST POSITION. SLOWLY PROGRESSING TOWARDS GOALS.
[2017-04-24 05:31] LABS: ABSOLUTE LYMPHOCYTES 0.6 thou/uL (0.8-5.3); ABSOLUTE MONOCYTES 0.6 thou/uL (0.0-1.2); ABSOLUTE NEUTROPHILS 8.7 thou/uL (1.6-8.1); BASOPHILS 0.4 %; HEMATOCRIT 33.5 % (42.0-52.0); HEMOGLOBIN 11.2 gm/dL (14.0-18.0); LYMPHOCYTES 6.5 %; MCH 33.7 pg (26.0-34.0); MCHC 33.3 g/dL (28.0-37.0); MCV 101.1 fL (80.0-100.0); MONOCYTES 5.5 %; MPV 10.8 fl. (7.2-11.1); NUCLEATED RBCS 0 /100WBC; PLATELET COUNT* 149 thou/uL (150-400); POLYS 87.6 %; RBC 3.31 mil/uL (4.50-6.00); WBC 9.9 thou/uL (4.0-11.0)
[2017-04-24 05:50] LABS: CALCIUM 8.2 mg/dL (8.5-10.1); TOTAL BILIRUBIN 0.2 mg/dL (<0.1-1.0); TOTAL PROTEIN 6.6 g/dL (6.4-8.2)
[2017-04-24 05:57] LABS: CREATININE 4.4 mg/dL (0.6-1.3)
--- NOTE | 2017-04-24 18:00 | NUR ---
PT. STABLE THROUGH OUT THE DAY. UP TO CHAIR FOR MEALS X2, TOLERATED WELL. NO COMPLAINTS OF PAIN/SOB. APPETITE GOOD, PT. COMPLETING MEALS AND SNACKS PROVIDED. TELE MONITOR REMOVED PER ORDERS. PER DR. ANNA WOULD LIKE BLOOD CULTURES TO BE DRAWN FROM DIALYSIS CATHETER DURING DIALYSIS TOMORROW (ORDER PLACED). UPDATE GIVEN TO PT. DAUGHTER VIA PHONE THIS MORNING. PT. TRANSFERED UP TO MED/SURG UNIT, ALL BELONGINGS ACCOUNTED FOR. REPORT GIVEN TO FERNANDEZ APARICIO TO CONTINUE CARE.
--- NOTE | 2017-04-24 19:27 | NUR ---
PATIENT TO ROOM 311 @ 1835 THIS EVENING. A/O X 4, DENIES PAIN, NO DISTRESS NOTED, COMPLIANT WITH CARE. CONT ON 1.5L02NC, LUNGS DIMINISHED, NONPROD COUGH NOTED. VSS, LALI WATER AT BEDSIDE, UP WITH ASSIST PER REPORT. THRILL/BRUIT PRESENT TO LEFT UPPER ARM GRAFT PLACED BY DR. MUSA LAST WEEK. CONTINENT OF BOWEL AND BLADDER, ORIENTED TO ROOM, CPAP AT BEDSIDE FOR NIGHT, CALL LIGHT IN REACH, REPORT GIVEN TO DECKHAND CRAB BOAT NURSE.
[2017-04-25] VITALS (11 sets, daily range): BP systolic 112–146; BP diastolic 45–57
--- NOTE | 2017-04-25 06:56 | NUR ---
PT SLEPT MOST OF SHIFT. ASSESSMENT DOCUMENTED. MEDS GIVEN PER E-MAR. IV PATENT. NO REPORTS OF PAIN OR NAUSEA. PT WORE CPAP THORUGH NIGHT. PT VOIDED PER URINAL. PT REMAINED NPO AFTER 0000, AM MEDS GIVEN WITH SIP OF WATER. NO CONCERNS AT THIS TIME.
--- NOTE | 2017-04-25 13:30 | NUR ---
CONTINUE TO FOLLOW, PT IN DIALYSIS AND TO HAVE [facility] LATER. HAS VASCULAR CONSULT. PER DR ANNA'S NOTE, PT WILL NEED IV VANCO WITH DIALYSIS, NEED FINAL ORDERS. PT PLANS TO RETURN HOME AT [place] WITH [facility] . THEY WILL NEED CALLED AND ORDERS FAXED AT [place]. [facility] WILL NEED FINAL DC ORDERS INCLUDING VANCO IV ORDERS CALLED AND FAXED AT [place] WITH FLOW SHEET ALSO. [facility] [phone] FAX [phone] [facility] [phone] FAX [phone]
--- NOTE | 2017-04-25 19:44 | NUR ---
RESUMED CARE THIS AM. DIALYSIS COMPLETED, 2.5L TAKEN OFF, BLOOD CULTURES TAKEN FROM DIALYSIS CATH PRIOR TO DIALYSIS, TO LAB. DIALYSIS CATH REMOVED PER CARDIOLOGY, PRESSURE DRESSING APPLIED, NO BLEEDING NOTED. LELAND PERFORMED BY DR. POLK AT BEDSIDE, SEE REPORT. HANH GRAFT W/ POS BRUIT/THRILL, UP TO CHAIR FOR SUPPER WITH SBA X 1, MAKING PROGRESS TOWARD D/C GOALS.
--- NOTE | 2017-04-25 19:54 | TEE ---
[place] [address] TRANSESOPHAGEAL ECHOCARDIOGRAM Name: BARKSDALEMERYBHAVESH ROUSE Room: [address] IN [facility]#: [id number] Admission: 04/21/17 Attend Phys: Grupo Estrella, Discharge: Date of : 34 Date of Service: 04/25/171952 Report #: [id number] THIS REPORT FOR: //name// APPROVED REPORT Study performed: 04/25/2017 14:40:41 EXAM: Transesophageal Echocardiogram Patient Location: In-Patient Room #: [facility] Status: routine BSA: 2.14 HR: 79 bpm BP: 130/58 mmHg Rhythm: NSR Other Information Study Quality: Good Indications Sepsis Echo Enhancing Agent Indication: Rule out Shunt Agent(s) / Amount(s) Used: Agitated Saline 10 cc Procedure After obtaining informed consent, patient underwent transesophageal echo in the [employer]. Type of Sedation : Conscious Sedation Sedation was administered by Joan Jacobs RN. Sedation start time: 1435 Case end Time: 1450 Sedation was achieved intravenously with: Versed (3) Fentanyl (75) Transesophageal probe was inserted and advanced into esophagus without difficulty by Manish Elizondo MD, FACC. Echo enhancement indication: R/O Septal defect. Echo enhancement agent administered: Agitated Saline The LELAND was performed without complications. Throughout the procedure, the blood pressure, pulse oximetry, cardiac rhythm, and rate were monitored. The patient tolerated the procedure without adverse effects. Recovery from conscious sedation was uneventful and [place] [address] TRANSESOPHAGEAL ECHOCARDIOGRAM Name: MERY BARKSDALE Room: [address] IN .R.#: [id number] Admission: 04/21/17 Attend Phys: Grupo Estrella, Discharge: Date of : 34 Date of Service: 04/25/171952 Report #: [id number] Left Ventricle The left ventricle is normal size. There is normal LV segmental wall motion. There is normal left ventricular wall thickness. Left ventricular systolic function is normal. LVEF is 60-65%. Right Ventricle The right ventricle is normal size. The right ventricular systolic function is normal. Atria No thrombus is visualized in the left atrium or appendage. Small PFO is noted. The right atrium size is normal. Aortic Valve The aortic valve is normal in structure. No aortic regurgitation is present. There is no aortic valvular stenosis. Mitral Valve The mitral valve is normal in structure. Trace mitral regurgitation. No evidence of mitral valve stenosis. Tricuspid Valve The tricuspid valve is normal in structure. Trace tricuspid regurgitation. Pulmonic Valve Pulmonic valve is not well visualized. Great Vessels The aortic root is normal in size. Pericardium There is no pericardial effusion. <Conclusion> The left ventricle is normal size. There is normal left ventricular wall thickness. Left ventricular systolic function is normal. LVEF is 60-65%. No thrombus is visualized in the left atrium or appendage. Small PFO is noted. Trace mitral regurgitation. Trace tricuspid regurgitation. The aortic valve is [place] [address] TRANSESOPHAGEAL ECHOCARDIOGRAM Name: BARKSDALEEMRYBHAVESH ROUSE Room: [address] IN [facility]#: [id number] Admission: 04/21/17 Attend Phys: Grupo Estrella, Discharge: Date of : 34 Date of Service: 04/25/171952 Report #: [id number] The mitral valve is normal in structure. The tricuspid valve is normal in structure. <ELECTRONICALLY SIGNED> By: Manish Elizondo MD, FACC 04/25/171952 52 52 Manish Elizondo MD, FACC /INF
[2017-04-26 03:53] LABS: ABSOLUTE BASOPHILS 0.1 thou/uL (0.0-0.2); ABSOLUTE EOSINOPHILS 0.1 thou/uL (0.0-0.7); ABSOLUTE LYMPHOCYTES 1.7 thou/uL (0.8-5.3); ABSOLUTE MONOCYTES 0.7 thou/uL (0.0-1.2); ABSOLUTE NEUTROPHILS 4.3 thou/uL (1.6-8.1); BASOPHILS 0.7 %; EOSINOPHILS 2.1 %; HEMATOCRIT 36.6 % (42.0-52.0); HEMOGLOBIN 12.1 gm/dL (14.0-18.0); LYMPHOCYTES 24.4 %; MCH 33.2 pg (26.0-34.0); MCHC 32.9 g/dL (28.0-37.0); MCV 100.7 fL (80.0-100.0); MONOCYTES 9.8 %; MPV 10.2 fl. (7.2-11.1); NUCLEATED RBCS 0 /100WBC; PLATELET COUNT* 155 thou/uL (150-400); RBC 3.63 mil/uL (4.50-6.00); RDW-CV 17.4 % (10.5-14.5); WBC 6.9 thou/uL (4.0-11.0)
[2017-04-26 04:05] LABS: ALBUMIN 2.9 g/dL (3.4-5.0); CALCIUM 8.3 mg/dL (8.5-10.1); CREATININE 4.2 mg/dL (0.6-1.3); POTASSIUM 4.1 mmol/L (3.5-5.1); TOTAL BILIRUBIN 0.3 mg/dL (<0.1-1.0); TOTAL PROTEIN 6.2 g/dL (6.4-8.2)
--- NOTE | 2017-04-26 05:42 | NUR ---
ASSESSMENT COMPLETE. PT SLEPT GOOD THROUGH THE NIGHT WITHOUT ANY CONCERNS. PT DENIES PAIN AND N/V. PT IS WEARING HOME CPAP WITH ADEQUATE SATS. PT ISOLATION FOR MRSA. IV VANC INCREASED DUE TO TROUGH BEING 14. PT IS ACCUCHECK. PT IS FALL RISK, BED ALARM ON. TURNS SELF IN BED. SEE ASSESMENT AND VITALS FOR OTHER DETAILS. WILL CONTINUE PLAN OF CARE.
[2017-04-26 06:17] VITALS: BP 133/53
[2017-04-26 08:00] VITALS: BP 109/50
[2017-04-26] MEDS ORDERED: VANCO 500500 MG/100 IV (14:34)
[2017-04-26 14:48] VITALS: BP 109/50
--- NOTE | 2017-04-26 16:01 | NUR ---
DISCHARGE ORDERS RECEIVED, IV ACCESS REMOVED WITHOUT INCIDENT. DISCHARGE INSTRUCTIONS, FOLLOW UP APPOINTMENTS, ORDERS FOR ANTIBIOTIC DISCUSSED WITH PATIENT AND DAUGHTER AT BEDSIDE. ORDER FOR VANCOMYCIN SENT TO [facility], CONFIRMED WITH BHARAT. PERSONAL EFFECTS GATHERED, ACCOUNTED FOR, IN COMPANY OF DAUGHTER. PATIENT TRANSPORTED TO MAIN ENTRANCE IN STABLE CONDITION.
--- NOTE | 2017-04-26 18:40 | NUR ---
NOTIFIED [facility] THAT PT.DISCHARGED TODAY. MARKUS PRESLEY WILL FAX DISCHARGE ORDERS TO [facility] TO [facility] PER NUMBER IN PREVIOUS CM NOTE.
--- NOTE | 2017-04-29 12:38 | CON ---
[address] [address] CONSULTATION Name: BARKSDALEMERY PADMA Room: [address] IN M.R.#: [id number] Admission: 04/21/17 Attend Phys: Grupo Estrella MD Discharge: 04/26/17 Date of : 34 Report #: [id number] THIS REPORT FOR: //name// CC: Grupo Estrella Linda Bundy DATE OF SERVICE: 04/22/2017 CONSULTING PHYSICIAN: Dr. Estrella. REASON FOR CONSULTATION: End-stage renal disease for maintenance hemodialysis. CHIEF COMPLAINT: Fever and cough. HISTORY OF PRESENT ILLNESS: This is a very pleasant 81-year-old male with a past medical history of ESRD, on hemodialysis every Friday, Friday, Friday and other medical problems, who came in with fever, cough and chills. He was found to have bilateral pneumonitis and started on treatment for that. Nephrology has been consulted for dialysis needs. His last dialysis was yesterday. REVIEW OF SYSTEMS: The patient is feeling better and he is saying that his cough is better. Not having any fevers. Otherwise 10-point review of systems done, negative. PAST MEDICAL HISTORY: Includes coronary artery disease; congestive heart failure; COPD; diabetes mellitus type 2; ERSD, on dialysis; hypertension. ALLERGIES: Reviewed. HOME MEDICATIONS: Reviewed. Inpatient medications were reviewed. PAST SURGICAL HISTORY: Includes a CABG and hip replacement, coronary artery stents. He has an AV graft in left arm and he has a right tunneled dialysis catheter, cholecystectomy. FAMILY HISTORY: Noncontributory. SOCIAL HISTORY: No history of any alcohol use or current smoking or illicit drug use. PHYSICAL EXAMINATION: VITAL SIGNS: Blood pressure is 126/41, temperature 37.1, pulse rate is 60, respiratory rate is 18 and his pulse ox is 97% on 2 liters nasal cannula. GENERAL: He is awake, alert, oriented x 3, in no acute distress. HEAD, EYES, EARS, NOSE AND THROAT: Mucous [place] [address] CONSULTATION Name: APOLONIAMERYBHAVESH ROUSE Room: [address]R.#: [id number] Admission: 04/21/17 Attend Phys: Grupo Estrella MD Discharge: 04/26/17 Date of : 34 Report #: [id number] NECK: No JVD. CHEST: Decreased breath sounds bilaterally. No crackles heard. CARDIOVASCULAR: S1, S2 normal. No murmurs heard. ABDOMEN: Soft, nondistended, nontender. Bowel sounds are present. EXTREMITIES: He has a left arm AV graft with good bruit and he has a right tunneled dialysis catheter. EXTREMITIES: He has symmetrical lower extremities and no edema in lower extremities. NEUROLOGIC FUNCTION: Gross neurological function is intact. PSYCHIATRIC: Mood and affect seem to be normal. LABORATORY DATA: As per lab, his last sodium is 143, his potassium is 5.1. The lab which was drawn at 4:30 was inaccurate, so, the repeat labs are better. Other labs were reviewed. Imaging was reviewed. ASSESSMENT: 1. End-stage renal disease, on hemodialysis. 2. Bilateral pneumonitis. 3. Hypertension. 4. Diabetes type 2. PLAN: The patient is getting antibiotics for his bilateral pneumonitis. From our standpoint, we will dialyze him on his Friday, Friday, Friday schedule. There is no acute need for dialysis today. I will continue to monitor him. Thank you for this consultation. <ELECTRONICALLY SIGNED> By: Anali Olsen MD 04/29/17 1238 0827 1055Awillian Olsen MD /nt
== END 2017-04-26 16:05 | disposition home health service (06) | DRG 871 ==
LOC: M.ERS 16:30 → M.TBA-ER 17:52 → M.2W 17:52 → M.3W 04-24 18:51
PROVIDERS: Emergency Medicine Emergency Medical Services; Internal Medicine; ADMIT Internal Medicine
PROC: 05PYX3Z Removal of Infusion Device from Upper Vein, External Approach (ICD-10-PCS; principal; 2017-04-21)
PROC: B24BZZ4 Ultrasonography of Heart with Aorta, Transesophageal (ICD-10-PCS; principal; 2017-04-21)
PROC: 5A1D70Z Performance of Urinary Filtration, Intermittent, Less than 6 Hours Per Day (ICD-10-PCS; 2017-04-23)
PROC: 5A1D70Z Performance of Urinary Filtration, Intermittent, Less than 6 Hours Per Day (ICD-10-PCS; 2017-04-25)
DX: A41.81 Sepsis due to Enterococcus (principal); J18.9 Pneumonia, unspecified organism; J96.20 Acute and chronic respiratory failure, unspecified whether with hypoxia or hypercapnia; N18.6 End stage renal disease; J44.1 Chronic obstructive pulmonary disease with (acute) exacerbation; I13.2 Hypertensive heart and chronic kidney disease with heart failure and with stage 5 chronic kidney disease, or end stage renal disease; J44.0 Chronic obstructive pulmonary disease with (acute) lower respiratory infection; Z96.641 Presence of right artificial hip joint; D32.9 Benign neoplasm of meninges, unspecified; I25.10 Atherosclerotic heart disease of native coronary artery without angina pectoris; I50.9 Heart failure, unspecified; E11.22 Type 2 diabetes mellitus with diabetic chronic kidney disease; Z60.2 Problems related to living alone; E11.42 Type 2 diabetes mellitus with diabetic polyneuropathy; F32.9 Major depressive disorder, single episode, unspecified; A49.1 Streptococcal infection, unspecified site; Z79.899 Other long term (current) drug therapy; Z95.1 Presence of aortocoronary bypass graft; Z95.5 Presence of coronary angioplasty implant and graft; Z88.2 Allergy status to sulfonamides; Z87.891 Personal history of nicotine dependence; Z79.82 Long term (current) use of aspirin

== ENCOUNTER 2017-06-28 08:46 | Inpatient (IN) | payer OTHER ==
[~2017-06-28] VITALS: Ht 175.3 cm; Wt 97.5 kg
[~2017-06-28 08:46] MED LIST changes: +VANCO 500500 MG/100 IV
[2017-06-28 08:58] VITALS: BP 130/46
[2017-06-28 09:02] LABS: URINE BLOOD 3+ (Negative); URINE CLARITY CLOUDY; URINE COLOR BROWN; URINE GLUCOSE-RANDOM NEGATIVE (Negative); URINE KETONES 1+ (Negative); URINE PROTEIN 3+ (Negative); URINE SPECIFIC GRAVITY 1.025 (1.005-1.030)
[2017-06-28 09:03] LABS: URINE BILIRUBIN 2+ (Negative); URINE LEUKOCYTES-REFLEX 2+ (Negative); URINE NITRITE-REFLEX POSITIVE (Negative)
[2017-06-28 09:04] LABS: ICTOTEST (BILI CONFIRMATORY) Negative (Negative)
[2017-06-28 09:07] LABS: ABSOLUTE BASOPHILS 0.1 thou/uL (0.0-0.2); ABSOLUTE EOSINOPHILS 0.2 thou/uL (0.0-0.7); ABSOLUTE MONOCYTES 0.9 thou/uL (0.0-1.2); ABSOLUTE NEUTROPHILS 7.7 thou/uL (1.6-8.1); BASOPHILS 0.9 %; HEMATOCRIT 35.1 % (42.0-52.0); LYMPHOCYTES 18.6 %; MCH 33.4 pg (26.0-34.0); MCHC 34.2 g/dL (28.0-37.0); MCV 97.9 fL (80.0-100.0); MONOCYTES 8.4 %; MPV 10.5 fl. (7.2-11.1); NUCLEATED RBCS 0 /100WBC; PLATELET COUNT* 162 thou/uL (150-400); POLYS 70.1 %; RBC 3.59 mil/uL (4.50-6.00); RDW-CV 14.7 % (10.5-14.5); WBC 10.9 thou/uL (4.0-11.0)
[2017-06-28 09:08] LABS: COARSE GRANULAR CASTS 0-3 Few /LPF (None Seen); CRYSTALS None Seen /LPF (None Seen); HYALINE CASTS 0-3 Few /LPF (None Seen); MUCUS 0-3 Light strn/LPF (None Seen); SQUAMOUS 0-3 Few /LPF (0-3); URINE RBC >20 Many /HPF (0-2); URINE WBC-REFLEX >25 Many /HPF (0-5)
[2017-06-28 09:15] LABS: CALCIUM 9.5 mg/dL (8.5-10.1); POTASSIUM 5.3 mmol/L (3.5-5.1)
[2017-06-28 09:16] LABS: APTT 30.5 Seconds (25.0-31.3); INR 1.1; PROTIME 10.7 Seconds (9.20-11.50)
[2017-06-28 09:20] LABS: ALBUMIN 3.9 g/dL (3.4-5.0); TOTAL BILIRUBIN 0.4 mg/dL (<0.1-1.0); TOTAL PROTEIN 8.2 g/dL (6.4-8.2)
[2017-06-28 11:57] VITALS: BP 123/44
[2017-06-28 16:00] VITALS: BP 137/50
--- NOTE | 2017-06-28 17:23 | NUR ---
PATIENT ADM TODAY, ON FLOOR AT 1150. TOOK REPORT FROM JF APARICIO IN ER. PATIENT A&OX4, 2L O2 VIA NC, UP WITH ASSISTX1 WITH CANE/WALKER, STEADY GAIT. NO C/O PAIN/N/V. ON DIALYSIS, M/W/F, LEFT UPPER ARM FISTULA. ADM ASSESSED, COMPLETED, AND DOCUMENTED. APPROPRIATE AND COOPORATIVE WITH CARE. NO OTHER CONCERNS AT THIS TIME.
[2017-06-28 22:15] VITALS: BP 113/36
[2017-06-29 00:28] VITALS: BP 141/37
[2017-06-29 03:55] LABS: ABSOLUTE BASOPHILS 0.1 thou/uL (0.0-0.2); ABSOLUTE EOSINOPHILS 0.4 thou/uL (0.0-0.7); ABSOLUTE LYMPHOCYTES 1.8 thou/uL (0.8-5.3); ABSOLUTE MONOCYTES 0.9 thou/uL (0.0-1.2); ABSOLUTE NEUTROPHILS 4.3 thou/uL (1.6-8.1); BASOPHILS 0.9 %; EOSINOPHILS 4.8 %; HEMATOCRIT 29.1 % (42.0-52.0); LYMPHOCYTES 24.6 %; MCH 33.5 pg (26.0-34.0); MCV 98.5 fL (80.0-100.0); MONOCYTES 11.6 %; MPV 10.7 fl. (7.2-11.1); NUCLEATED RBCS 0 /100WBC; PLATELET COUNT* 126 thou/uL (150-400); POLYS 58.1 %; RBC 2.95 mil/uL (4.50-6.00); WBC 7.4 thou/uL (4.0-11.0)
[2017-06-29 03:56] LABS: HEMOGLOBIN 9.9 gm/dL (14.0-18.0)
[2017-06-29 04:38] LABS: CALCIUM 8.3 mg/dL (8.5-10.1); CREATININE 8.1 mg/dL (0.6-1.3)
[2017-06-29 04:39] VITALS: BP 138/68
--- NOTE | 2017-06-29 06:24 | NUR ---
ALERT AND ORIENTED. UP WITH STAND BY ASSIST TO BATHROOM. ON O2 AT 2L/NC WITH O2 SAT 99%. DIALYSIS FISTULA HAS GOOD BRIUT AND THRILL. NO C/O NAUSEA AND PAIN. USES CPAP AT NIGHT. ON HEART MONITOR. REMAINS ON ISOLATION FOR HX OF MRSA OF [place]. CALL LIGHT WITHIN REACH. ]
[2017-06-29 08:00] VITALS: BP 136/40
[2017-06-29 12:00] VITALS: BP 135/48
[2017-06-29 16:00] VITALS: BP 139/45
--- NOTE | 2017-06-29 16:52 | EKG ---
[place] [address] ELECTROCARDIOGRAM REPORT Name: MERY BARKSDALE Room: [address] ADM IN M.R.#: [id number] Admission: 06/28/17 Attend Phys: Grupo Estrella MD Discharge: Date of : 34 Report #: [id number] THIS REPORT FOR: //name// [facility] Test Date: 2017-06-28 Test Time: 09:27:58 Pat Name: MERY BARKSDALE Department: Room: [facility] Gender: M Presentation Designer: [place] : 1935 Requested By: Emile Salvador Order Number: [id number] MD: Manish Elizondo Measurements Intervals [place] Rate: 74 P: 0 RI: 306 QRS: 32 QRSD: 159 T: 223 QT: 455 QTc: 505 Interpretive Statements Sinus rhythm Prolonged RI interval Left bundle branch block Baseline wander in lead(s) V2 Compared to ECG 04/21/2017 16:42:08 First degree AV block now present Electronically Signed On 06-29-2017 16:51:57 CDT by Manish Elizondo [email or web address] <ELECTRONICALLY SIGNED> By: Manish Elizondo MD, FACC 06/29/17 1651 0927 0927 Manish Elizondo MD, FAC /EPI
--- NOTE | 2017-06-29 17:59 | NUR ---
PATIENT A&OX4, 2L O2 VIA NC, IV RIGHT FOREARM SALINE LOCK. UP WITH ASSISTX1 WITH CANE AND GAITBELT. STEADY GAIT. NO C/O PAIN/N/V. DIALYSIS ON //. FISTULA IN LEFT UPPER ARM, BRUIT AND THRILL. NO OTHER CONCERNS AT THIS TIME. APPROPRAITE AND COOPORATIVE WITH CARE.
[2017-06-29 20:00] VITALS: BP 111/51
[2017-06-30 00:05] VITALS: BP 135/40
[2017-06-30 04:18] LABS: ABSOLUTE EOSINOPHILS 0.3 thou/uL (0.0-0.7); ABSOLUTE LYMPHOCYTES 1.7 thou/uL (0.8-5.3); ABSOLUTE MONOCYTES 0.6 thou/uL (0.0-1.2); ABSOLUTE NEUTROPHILS 3.4 thou/uL (1.6-8.1); BASOPHILS 0.8 %; EOSINOPHILS 4.9 %; HEMATOCRIT 28.3 % (42.0-52.0); HEMOGLOBIN 9.6 gm/dL (14.0-18.0); LYMPHOCYTES 27.8 %; MCH 33.3 pg (26.0-34.0); MCHC 33.9 g/dL (28.0-37.0); MCV 98.2 fL (80.0-100.0); MONOCYTES 10.6 %; MPV 10.6 fl. (7.2-11.1); NUCLEATED RBCS 0 /100WBC; PLATELET COUNT* 122 thou/uL (150-400); POLYS 55.9 %; RBC 2.88 mil/uL (4.50-6.00); RDW-CV 14.9 % (10.5-14.5); WBC 6.1 thou/uL (4.0-11.0)
[2017-06-30 04:45] LABS: ALBUMIN 2.9 g/dL (3.4-5.0); CALCIUM 8.3 mg/dL (8.5-10.1); POTASSIUM 4.9 mmol/L (3.5-5.1); TOTAL BILIRUBIN 0.2 mg/dL (<0.1-1.0); TOTAL PROTEIN 6.2 g/dL (6.4-8.2)
[2017-06-30 04:53] LABS: CREATININE 9.1 mg/dL (0.6-1.3)
--- NOTE | 2017-06-30 05:58 | NUR ---
PT SLEPT WELL OVERNIGHT. UP WITH ASSITS AND CANE TO BR. TELE SR BBB. LUPPER ARM FISTULA +BRUIT AND THRILL-TO HAVE DIALYSIS TODAY. [place] OF PICURIS. O2 2L, CPAP OVERNIGHT. RFA SL. HS ACCUCHECK 114. REMAINS ON CONTACT ISOLATION FOR MRSA. ABLE TO USE CALL LITE AND MAKE NEEDS KNOWN. BED ALARM ON FOR SAFETY. TO DC HOME TODAY AFTER DIALYSIS.
[2017-06-30 07:50] VITALS: BP 153/48
--- NOTE | 2017-06-30 09:54 | CON ---
[address] [address] CONSULTATION Name: APOLONIAMERY PADMA Room: [address] ADM IN M.R.#: [id number] Admission: 06/28/17 Attend Phys: Grupo Estrella MD Discharge: Date of : 34 Report #: [id number] THIS REPORT FOR: //name// CC: Grupo Bundy REFERRING PHYSICIAN: Dr. Estrella. REASON FOR CONSULTATION: Gross hematuria. HISTORY OF PRESENT ILLNESS: This is an 82-year-old gentleman with a history of end-stage renal disease who presented to the hospital and was admitted for gross hematuria and UTI. He reports sudden onset of gross hematuria yesterday without clots. Denies difficulty voiding, otherwise. He has end-stage renal disease and says he does not make much urine, but has not had trouble voiding. He denies flank pain or fever. He does not know of any other recent illness. Denies fever or chills. He is not sure of the source of his renal failure. He was admitted a couple of months ago with sepsis, but states he recovered from that well. He admits to mild dysuria prior to admission, but says that has resolved. PAST MEDICAL HISTORY: As above. Also, has a history of coronary artery disease, congestive heart failure, COPD, diabetes, pneumonia, hypertension, arrhythmia and UTI. ALLERGIES: INCLUDE SULFA. MEDICATIONS: List is reviewed. He has been started on Rocephin empirically by the Primary Service. PAST SURGICAL HISTORY: Includes coronary artery bypass, hip replacement, dialysis catheter placement. FAMILY HISTORY: He does not know of any family history of renal disease. SOCIAL HISTORY: He reports a history of alcoholism, but states he has not had a drink in many years. Denies use of tobacco. REVIEW OF SYSTEMS: As per the history of present illness. No chest pain, shortness of breath, palpitations. No other bleeding or easy bruising. No nausea or vomiting. PHYSICAL EXAMINATION: VITAL SIGNS: Temperature 36.3, pulse 58, respirations 18, blood pressure 136/40. GENERAL: This is an 82-year-old male, in no acute distress. HEENT: Normocephalic, atraumatic[place] [address] CONSULTATION Name: MERY BARKSDALE Room: [address]#: [id number] Admission: 06/28/17 Attend Phys: Grupo Estrella MD Discharge: Date of : 34 Report #: [id number] NECK: Supple. No JVD. CARDIOVASCULAR: Rhythm is regular. Radial pulses are palpable. Respiratory effort and excursion are normal. CHEST WALL: Nontender. ABDOMEN: Soft, nontender, nondistended. Spine and costovertebral angles are nontender. Bladder is nonpalpable. EXTREMITIES: Warm. Moves all extremities. He walks with the assistance of a cane. No peripheral edema. GENITOURINARY: Reveals normal penile and scrotal skin: Urethral meatus was orthotopic with no blood seen. Testes are atrophic with no palpable masses or tenderness. Digital rectal exam reveals mild prostate enlargement with no nodules. Anus and sphincter tone are normal. LABORATORY DATA: Includes urinalysis revealing greater than 25 red cells, greater than 25 white cells and 20-30 bacteria. Culture on that is preliminarily growing gram-negative rods. White count of 7.4, with a hemoglobin of 9.9, platelet count 126,000. Sodium 139, potassium 5.0, chloride 99, CO2 of 28, BUN 68, creatinine 8.1, glucose 108. IMPRESSION: Gross hematuria, possibly secondary to urinary tract infection. End-stage renal disease. Hematuria has improved with empiric antibiotics. Await further culture results and treat as indicated. We will order a noncontrast CT scan of the abdomen and pelvis to evaluate the hematuria further. If the patient is otherwise stable for discharge, this evaluation can be continued as an outpatient. We discussed possibility of cytology and/or cystoscopy depending on CT findings and his progress. <ELECTRONICALLY SIGNED> By: Raffi Oseguera MD 06/30/17 0954 1104 1714Jokenya Oseguera MD /nt
--- NOTE | 2017-06-30 11:52 | NUR ---
PT.OUT OF ROOM AT [facility].
[2017-06-30 12:00] VITALS: BP 155/47
--- NOTE | 2017-06-30 12:15 | NUR ---
PT.EATING LUNCH. IS BEING DISCHARGED TODAY. PT.KNOWN FROM PREVIOUS ADMISSIONS. HE LIVES ALONE. COMES TO [facility]-. HE DRIVES HIMSELF. DAUGHTER IS SUPPORTIVE. HE HAS A WALKER,HOME O2 AND CPAP AT HOME. HE SAID HE DID NOT FEEL LIKE HE HAD THE NEED FOR HOME HEALTH THIS TIME. HIS CAR IS HERE AND PLANS ON DRIVING SELF HOME.
[2017-06-30 12:16] VITALS: BP 153/48
[2017-06-30 13:18] VITALS: BP 153/48
[2017-06-30] MEDS ORDERED: CEFUROXIME500 MG PO (13:43)
--- NOTE | 2017-06-30 13:45 | NUR ---
PRESCRIPTION FOR CEFTIN CALLED INTO PATIENT'S PHARMACY PER REQUEST. PATIENT NOTIFIED OF THE ABOVE.
--- NOTE | 2017-06-30 14:55 | NUR ---
PATIENT GIVEN DISCHARGE INSTRUCTIONS AT THIS TIME. PATIENT VERBALIZED UNDERSTANDING IN REGARDS TO NEW MEDICATIONS AND FOLLOW UP APPOINTMENTS. PATIENT'S IV REMOVED AND INFANTRY WEAPONS OFFICER REMOVED. PATIENT DISCHARGED TO HOME WITH ALL BELONGINGS. ESCORTED OFF NURSING UNIT VIA WHEELCHAIR.
--- NOTE | 2017-07-24 09:18 | CON ---
[address] [address] CONSULTATION Name: APOLONIAMERYBHAVESH ROUSE Room: [address] IN M.R.#: [id number] Admission: 06/28/17 Attend Phys: Grupo Estrella MD Discharge: 06/30/17 Date of : 34 Report #: [id number] THIS REPORT FOR: //name// CC: Grupo Estrella Linda Bundy DATE OF SERVICE: 06/29/2017 REQUESTING PHYSICIAN: Grupo Estrella M.D. REASON FOR CONSULTATION: Assistance in providing dialysis. HISTORY OF PRESENT ILLNESS: The patient is a very pleasant 82-year-old gentleman with medical history significant for end-stage renal disease, history of coronary artery disease, COPD. He was admitted to the hospital for evaluation of gross hematuria. He was found to have urinary tract infection and was given antibiotics. This morning, his hematuria has gone. PAST MEDICAL HISTORY: As I mentioned earlier. FAMILY HISTORY: Noncontributory. SOCIAL HISTORY: No current tobacco or alcohol abuse. MEDICATIONS PRIOR TO ADMISSION: Reviewed. From the standpoint of hematuria, he was on aspirin. PHYSICAL EXAMINATION: GENERAL: He is awake, alert, oriented, in no acute distress. VITAL SIGNS: Blood pressure today is 136/40, heart rate 58, afebrile. HEENT: Pupils are round. NECK: Supple. LUNGS: Clear. CARDIOVASCULAR: Regular rate. ABDOMEN: Soft. LOWER EXTREMITIES: No edema. He has left arm AV graft. LABORATORY DATA: Potassium is 5.0, serum sodium 139, BUN 68, creatinine 8.1, hemoglobin is 9.9. Urine showed presence of blood, nitrate, leukocyte esterase, white blood cells, red blood cells. Culture is growing greater than 100,000 colonies per mL of gram-negative rods. ASSESSMENT AND PLAN: End-stage renal disease. The patient admitted with urinary tract infection. Urine grew gram-negative rods. The patient was started on Rocephin and I will set [place] [address] CONSULTATION Name: MERY BARKSDALE Room: [address] IN M.R.#: [id number] Admission: 06/28/17 Attend Phys: Grupo Estrella MD Discharge: 06/30/17 Date of : 34 Report #: [id number] Thank you very much for asking my assistance in providing dialysis. <ELECTRONICALLY SIGNED> By: Greg Jc MD 07/24/17 0918 0928 [id number] Jc MD /nt
== END 2017-06-30 14:55 | disposition home or self-care (01) | DRG 689 ==
LOC: M.ERS 08:46 → M.3W 09:43 → M.TBA-ER 09:43 → M.3W 11:53
PROVIDERS: Family Medicine; Internal Medicine Nephrology; ADMIT Internal Medicine
DX: N39.0 Urinary tract infection, site not specified (principal); N18.6 End stage renal disease; I12.0 Hypertensive chronic kidney disease with stage 5 chronic kidney disease or end stage renal disease; N17.9 Acute kidney failure, unspecified; Z96.651 Presence of right artificial knee joint; I25.10 Atherosclerotic heart disease of native coronary artery without angina pectoris; J44.9 Chronic obstructive pulmonary disease, unspecified; M19.90 Unspecified osteoarthritis, unspecified site; E11.22 Type 2 diabetes mellitus with diabetic chronic kidney disease; E11.40 Type 2 diabetes mellitus with diabetic neuropathy, unspecified; N28.1 Cyst of kidney, acquired; B96.1 Klebsiella pneumoniae [K. pneumoniae] as the cause of diseases classified elsewhere; D35.02 Benign neoplasm of left adrenal gland; D35.01 Benign neoplasm of right adrenal gland; F32.9 Major depressive disorder, single episode, unspecified; Z90.49 Acquired absence of other specified parts of digestive tract; Z99.2 Dependence on renal dialysis; Z95.1 Presence of aortocoronary bypass graft; Z87.891 Personal history of nicotine dependence; Z95.5 Presence of coronary angioplasty implant and graft; Z79.51 Long term (current) use of inhaled steroids; Z79.82 Long term (current) use of aspirin; Z79.899 Other long term (current) drug therapy; Z88.2 Allergy status to sulfonamides; Z82.49 Family history of ischemic heart disease and other diseases of the circulatory system; Z80.8 Family history of malignant neoplasm of other organs or systems

== ENCOUNTER 2017-09-03 11:47 | Observation (INO) | payer OTHER ==
[~2017-09-03] VITALS: Ht 180.3 cm; Wt 88.0 kg
[~2017-09-03 11:47] MED LIST changes: +CEFUROXIME500 MG PO
[2017-09-03 11:48] VITALS: BP 124/43
[2017-09-03 12:16] LABS: ABSOLUTE EOSINOPHILS 0.1 thou/uL (0.0-0.7); ABSOLUTE MONOCYTES 0.5 thou/uL (0.0-1.2); ABSOLUTE NEUTROPHILS 3.6 thou/uL (1.6-8.1); BASOPHILS 0.4 %; EOSINOPHILS 1.8 %; HEMATOCRIT 33.9 % (42.0-52.0); HEMOGLOBIN 11.5 gm/dL (14.0-18.0); LYMPHOCYTES 19.1 %; MCH 34.4 pg (26.0-34.0); MCHC 33.8 g/dL (28.0-37.0); MCV 101.8 fL (80.0-100.0); MPV 9.5 fl. (7.2-11.1); NUCLEATED RBCS 0 /100WBC; PLATELET COUNT* 152 thou/uL (150-400); POLYS 69.7 %; RBC 3.33 mil/uL (4.50-6.00); RDW-CV 17.1 % (10.5-14.5); WBC 5.1 thou/uL (4.0-11.0)
[2017-09-03 12:24] LABS: ANION GAP 9 mmol/L (7-16); BUN 20 mg/dL (7-18); CALCIUM 9.2 mg/dL (8.5-10.1); CHLORIDE 95 mmol/L (98-107); CO2 33 mmol/L (21-32); CREATININE 3.5 mg/dL (0.6-1.3); GLUCOSE 119 mg/dL (70-99); POTASSIUM 3.9 mmol/L (3.5-5.1); SODIUM 137 mmol/L (136-145)
[2017-09-03 12:25] LABS: APTT 29.6 Seconds (25.0-31.3); INR 1.1; PROTIME 10.5 Seconds (9.20-11.50)
[2017-09-03 12:35] LABS: ALBUMIN 3.6 g/dL (3.4-5.0); ALKALINE PHOSPHATASE 71 U/L (46-116); NT-PRO BRAIN NAT PEPTIDE 5628 pg/mL (<300); SGOT 29 U/L (15-37); SGPT 19 U/L (30-65); TOTAL BILIRUBIN 0.3 mg/dL (<0.1-1.0); TOTAL PROTEIN 7.6 g/dL (6.4-8.2); TROPONIN-I LEVEL <0.06 ng/mL (<0.06)
[2017-09-03 17:15] VITALS: BP 170/63
[2017-09-03 17:30] VITALS: BP 148/55
--- NOTE | 2017-09-03 17:35 | EKG ---
[place] [address] ELECTROCARDIOGRAM REPORT Name: MERY BARKSDALE Room: [address] IN .R.#: [id number] Admission: 09/03/17 Attend Phys: Grupo Estrella MD Discharge: Date of : 34 Report #: [id number] THIS REPORT FOR: //name// [facility] ED Test Date: 2017-09-03 Test Time: 11:57:58 Pat Name: MERY BARKSDALE Department: Room: Gender: Volunteer Services Coordinator: : 1935 Requested By: Alfa Vega Order Number: [id number] MD: Peter Taylor Measurements Intervals [place] Rate: 79 P: 34 [place]: 263 QRS: 3 QRSD: 161 T: 194 QT: 435 QTc: 499 Interpretive Statements Sinus rhythm Prolonged [place] interval Left bundle branch block Compared to ECG 06/28/2017 09:27:58 No significant changes Electronically Signed On 09-03-2017 17:35:00 CDT by Peter Taylor [email or web address] <ELECTRONICALLY SIGNED> By: Peter Taylor MD, [facility] 09/03/17 1735 1157 1157 Peter Taylor MD, [facility] /EPI
--- NOTE | 2017-09-03 18:36 | NUR ---
PATIENT ARRIVED FROM THE ER THIS EVENING AT 1720. PATIENT IS ALERT AND ORIENTED X 4. HE DENIES PAIN, BUT C/O SOME DIZZINES ON ARRIVAL TO THE ROOM. VS OBTAINED. PATIENT ORIENTED TO ROOM AND PROCEDURES. PLACED ON O2 AT 2 LITERS. TELE MONITOR APPLIED. PATIENT INSTRUCTED ON FALL PRECAUTIONS. BED ALARM PLACED ON AND DIET ORDERED. TELE SHOWS SR WITH BBB AND 1DAVB. DIET ORDERED. WILL REPORT TO SQL ENGINEER.
[2017-09-03 20:00] VITALS: BP 143/47
[2017-09-04] VITALS (8 sets, daily range): BP systolic 117–144; BP diastolic 45–59
[2017-09-04 04:52] LABS: HEMOGLOBIN 10.8 gm/dL (14.0-18.0); RDW-CV 17.2 % (10.5-14.5); WBC 6.1 thou/uL (4.0-11.0)
[2017-09-04 04:55] LABS: ABSOLUTE EOSINOPHILS 0.1 thou/uL (0.0-0.7); ABSOLUTE LYMPHOCYTES 1.6 thou/uL (0.8-5.3); ABSOLUTE MONOCYTES 0.6 thou/uL (0.0-1.2); ABSOLUTE NEUTROPHILS 3.7 thou/uL (1.6-8.1); BASOPHILS 0.7 %; HEMATOCRIT 31.8 % (42.0-52.0); LYMPHOCYTES 26.3 %; MCH 34.5 pg (26.0-34.0); MCV 101.6 fL (80.0-100.0); MONOCYTES 10.1 %; MPV 10.3 fl. (7.2-11.1); NUCLEATED RBCS 0 /100WBC; PLATELET COUNT* 145 thou/uL (150-400); POLYS 60.9 %; RBC 3.13 mil/uL (4.50-6.00)
[2017-09-04 05:15] LABS: CALCIUM 8.6 mg/dL (8.5-10.1); POTASSIUM 4.6 mmol/L (3.5-5.1)
[2017-09-04 05:29] LABS: CREATININE 5.2 mg/dL (0.6-1.3)
--- NOTE | 2017-09-04 05:51 | NUR ---
PATIENT SLEPT THROUGH THE NIGHT. ON CPAP FROM HOME. DENIES PAIN OR DISCOMFORT. CONT. TO MONITOR.
--- NOTE | 2017-09-04 08:00 | NUR ---
ASSUMED PT. CARE AND RECEIVED REPORT AT 0730. PT A/OX4, VSS, MONITOR ON TRACING SR 1ST BBB. PT. ON 2L NC @ 96%. DENIES CURRENT DIZZINESS WHILE LAYING IN BED. ORTHOSTATIC BP COMPLETED PER ORDERS AND FOUND TO BE WNL. FULL ASSESSMENT COMPLETED, REFER TO CHARTING. PT. SITTING BEDSIDE, AWAITING BREAKFAST. CALL LIGHT IN REACH, WILL CONTINUE WITH PLAN OF CARE.
--- NOTE | 2017-09-04 11:00 | NUR ---
SPOKE WITH PT. HE WAS ALERT AND ORIENTED. HE LIVES ALONE. IS INDEPENDENT. [facility] HIMSELF [facility]. HE HAS HOME O2. HE SAID HE HASN'T BEEN WEARING IT, JUST DIDN'T FEEL LIKE HE NEEDED IT ANYMORE. HE THINKS MAYBE THAT IS WHY HE GOT SO DIZZY. DAUGHTER WILL COME TO PICK HIM UP AND BRING PORTABLE O2 TANK. DISCUSSED HOME HEALTH AND HE IS AGREEABLE. HE WOULD LIKE TO USE [facility] HE USED THEM BEFORE. FAXED REFERRAL,DISCHARGE ORDERS AND FACE TO FACE FORM TO REBECCA AT [phone]. HE CONFIRMED RECEIVING ORDERS.
--- NOTE | 2017-09-04 18:00 | NUR ---
DR. BUCHANAN NOTIFIED OF ULTRA SOUND RESULTS. DC ORDERS RECEIVED. IV AND MONITOR REMOVED. PT. GIVEN DC INSTRUCTIONS, VERBALIZED UNDERSTANDING AND ALL QUESTIONS ANSWERED. PT. LEFT VIA WHEELCHAIR TO RETURN HOME IN PERSONAL VEHICLE. ALL BELONGINGS ACCOUNTED FOR.
--- NOTE | 2017-09-11 09:12 | CON ---
[address] [address] CONSULTATION Name: MERY BARKSDALE Room: [address] Keren Casarez#: [id number] Admission: 09/03/17 Attend Phys: Grupo Estrella MD Discharge: 09/04/17 Date of : 34 Report #: [id number] THIS REPORT FOR: //name// CC: Grupo Ruiza Gregor DATE OF SERVICE: 09/04/2017 CONSULTING PHYSICIAN: Grupo Estrella MD REASON FOR NEPHROLOGY CONSULTATION: End-stage renal disease for hemodialysis needs. REASON FOR ADMISSION: Dizziness post dialysis. HISTORY OF PRESENT ILLNESS: This is an 82-year-old very pleasant male who has past medical history of end-stage renal disease. He is on hemodialysis every Friday, Friday, Friday as well as other medical problems who completed his dialysis yesterday and then became dizzy. There is no reported hypotension and his blood pressure has been good so far here in hospital. He does not have orthostatic hypotension. Brain imaging was negative for any acute stroke. This morning, he is feeling better. Plan is to let him go home today. ALLERGIES: SULFA. REVIEW OF SYSTEMS: The patient had dizziness post dialysis and otherwise other review of systems were done and they were negative. PAST MEDICAL HISTORY: Includes history of CABG, coronary artery disease, history of COPD, history of diabetes type 2, end-stage renal disease, on hemodialysis every Friday, Friday and Friday at [facility]; hypertension, neuropathy in feet, depression, atrial fibrillation. PAST SURGICAL HISTORY: Includes CABG, hip replacement, stents, AV graft in left arm and a tunneled dialysis catheter at some point. SOCIAL HISTORY: He does not smoke. He lives at home. No alcohol use, no drug use. FAMILY HISTORY: Noncontributory. HOME MEDICATIONS: Include levothyroxine, tiotropium, gemfibrozil, gabapentin, fluticasone, allopurinol, doxazosin, aspirin, finasteride, Lasix, atorvastatin, hydralazine, fish oil, nitroglycerin, metoprolol, metolazone, folic acid, mirtazapine, carbamazepine, calcium acetate, clonazepam, hydrocodone, [place] [address] CONSULTATION Name: MERY BARKSDALE Room: [address] Keren Casarez#: [id number] Admission: 09/03/17 Attend Phys: Grupo Estrella MD Discharge: 09/04/17 Date of : 34 Report #: [id number] PHYSICAL EXAMINATION: VITAL SIGNS: Blood pressure is 130/59, pulse rate is 76, temperature is afebrile, respiratory rate is 16, temperature 36.5, pulse ox 99% on 2 liters oxygen. GENERAL: He is awake, alert, oriented x 3. HEAD, EYES, EARS, NOSE, THROAT: Mucous membranes are moist. NECK: There is no JVD. CHEST: Clear to auscultation bilaterally. No crackles or wheezing. CARDIOVASCULAR: S1, S2 normal. No murmurs or rubs. ABDOMEN: Soft, nontender. Bowel sounds are present. EXTREMITIES: There is no lower extremity edema, symmetrical extremities. DIALYSIS ACCESS: He has a left arm AV graft with good bruit. NEUROLOGICAL: Gross neurological function is intact. PSYCHIATRIC: Mood and affect seems to be normal. LABORATORY DATA: From this morning at 4:20 a.m., hemoglobin 10.8, potassium was 4.6, sodium was 139, CO2 was 32, and other labs were reviewed. IMAGING: Head CT and chest x-ray were reviewed. ASSESSMENT AND PLAN: 1. End-stage renal disease, on hemodialysis every Friday, Friday and Friday: The patient's last dialysis was yesterday and there is no acute need for dialysis today. He has a functioning left arm AV graft. Because of his renal function, gemfibrozil is contraindicated and I went ahead and stopped it. 2. Hypertension: Blood pressure is currently controlled and it does not look like he was hypotensive, so reason for dizziness is not known. Continue his home medications. 3. Anemia of chronic kidney disease: Epogen as needed with dialysis. 4. Dizziness: Exact etiology is not clear. Stroke was ruled out. Thank you for the consultation. I think he is okay to be discharged from Renal standpoint and if he ends up staying in the hospital, we will take care of his dialysis needs tomorrow. <ELECTRONICALLY SIGNED> By: Anali Olsen MD 09/11/17 0912 1017 [id number] Olsen MD /nt
--- NOTE | 2017-09-15 11:53 | NUR ---
PT SEEN FOR OCCUPATIONAL THERAPY EVALUATION ON 09/04/17. G-CODES FOLLOWS: CURRENT RATING: SELFCARE G8987 CI GOAL RATING: SELFCARE G8988 CI DISCHARGE RATING: SELFCARE G8989 CI
== END 2017-09-04 18:00 | disposition home or self-care (01) ==
LOC: M.ERS 11:47 → M.2W 13:15 → M.TBA-ER 13:15 → M.2W 13:15
PROVIDERS: Emergency Medicine Emergency Medical Services; ADMIT Internal Medicine
DX: I13.2 Hypertensive heart and chronic kidney disease with heart failure and with stage 5 chronic kidney disease, or end stage renal disease (principal); E11.22 Type 2 diabetes mellitus with diabetic chronic kidney disease; D63.1 Anemia in chronic kidney disease; I50.9 Heart failure, unspecified; N18.6 End stage renal disease; E11.40 Type 2 diabetes mellitus with diabetic neuropathy, unspecified; J44.9 Chronic obstructive pulmonary disease, unspecified; J96.10 Chronic respiratory failure, unspecified whether with hypoxia or hypercapnia; I48.91 Unspecified atrial fibrillation; M19.90 Unspecified osteoarthritis, unspecified site; I25.10 Atherosclerotic heart disease of native coronary artery without angina pectoris; F32.9 Major depressive disorder, single episode, unspecified; M26.609 Unspecified temporomandibular joint disorder, unspecified side; Z90.89 Acquired absence of other organs; Z98.890 Other specified postprocedural states; Z95.5 Presence of coronary angioplasty implant and graft; Z99.2 Dependence on renal dialysis

== ENCOUNTER 2017-11-17 15:37 | Inpatient (IN) | payer OTHER ==
[~2017-11-17] VITALS: Ht 175.3 cm; Wt 97.1 kg
[2017-11-17 15:40] VITALS: BP 120/48
[2017-11-17 16:25] LABS: HEMATOCRIT 27.7 % (42.0-52.0); HEMOGLOBIN 9.3 gm/dL (14.0-18.0); MCHC 33.5 g/dL (28.0-37.0); MCV 101.4 fL (80.0-100.0); MPV 10.4 fl. (7.2-11.1); NUCLEATED RBCS 0 /100WBC; PLATELET COUNT* 160 thou/uL (150-400); RBC 2.73 mil/uL (4.50-6.00); RDW-CV 15.6 % (10.5-14.5); WBC 10.3 thou/uL (4.0-11.0)
[2017-11-17 16:34] LABS: ANION GAP 8 mmol/L (7-16); BUN 33 mg/dL (7-18); CALCIUM 8.4 mg/dL (8.5-10.1); CHLORIDE 96 mmol/L (98-107); CO2 33 mmol/L (21-32); CREATININE 5.2 mg/dL (0.6-1.3); GLUCOSE 107 mg/dL (70-99); POTASSIUM 4.2 mmol/L (3.5-5.1); SODIUM 137 mmol/L (136-145)
[2017-11-17 16:35] LABS: APTT 34.3 Seconds (25.0-31.3); INR 1.1; PROTIME 11.1 Seconds (9.20-11.50)
[2017-11-17 16:46] LABS: ALBUMIN 2.8 g/dL (3.4-5.0); ALKALINE PHOSPHATASE 53 U/L (46-116); NT-PRO BRAIN NAT PEPTIDE 12861 pg/mL (<300); SGOT 23 U/L (15-37); SGPT 11 U/L (30-65); TOTAL BILIRUBIN 0.4 mg/dL (<0.1-1.0); TOTAL PROTEIN 7.5 g/dL (6.4-8.2); TROPONIN-I LEVEL <0.06 ng/mL (<0.06)
[2017-11-17 17:08] LABS: ABSOLUTE LYMPHOCYTES 1.1 thou/uL (0.8-5.3); ABSOLUTE MONOCYTES 0.6 thou/uL (0.0-1.2); ABSOLUTE NEUTROPHILS 8.5 thou/uL (1.6-8.1); ATYPICAL LYMPHS 2 %; PLATELET ESTIMATE ADEQUATE
[2017-11-17] MEDS ORDERED: GEMFIBROZIL 60600 MG PO (17:39)
[2017-11-17] MEDS ORDERED: TRIPHROCAPS SOFT1 MG PO (17:40)
[2017-11-17] MEDS ORDERED: PLAVIX 75 MG TA75 MG PO (17:40)
[2017-11-17 20:20] VITALS: BP 119/36
[2017-11-17 20:25] VITALS: BP 111/42
[2017-11-18] VITALS: BP 114/33
[2017-11-18 04:00] VITALS: BP 117/23
[2017-11-18 08:32] VITALS: BP 131/38
[2017-11-18 11:40] VITALS: BP 125/34
[2017-11-18 15:25] VITALS: BP 140/32
--- NOTE | 2017-11-18 17:01 | EKG ---
[place] [address] ELECTROCARDIOGRAM REPORT Name: MERY BARKSDALE Room: [address] ADM IN M.R.#: [id number] Admission: 11/17/17 Attend Phys: Butch Rueda Discharge: Date of : 34 Report #: [id number] THIS REPORT FOR: //name// 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1935 Requested By: Alfa Vega Order Number: [id number] MD: Peter Taylor Measurements Intervals [place] Rate: 88 P: 0 FL: 47 QRS: 49 QRSD: 148 T: 236 QT: 380 QTc: 460 Interpretive Statements Sinus rhythm with frist degree block artifact noted Left bundle branch block Compared to ECG 09/03/2017 11:57:58 artifact noted Electronically Signed On 11-18-2017 17:01:22 CDT by Peter Taylor [email or web address] <ELECTRONICALLY SIGNED> By: Peter Taylor MD, [facility] 11/18/17 1701 1539 1539 Peter Taylor MD, [facility] /EPI
[2017-11-19 00:05] VITALS: BP 149/46
[2017-11-19 03:43] LABS: HEMATOCRIT 24.3 % (42.0-52.0); HEMOGLOBIN 8.1 gm/dL (14.0-18.0); MCH 34.2 pg (26.0-34.0); MCHC 33.4 g/dL (28.0-37.0); MCV 102.2 fL (80.0-100.0); MPV 10.5 fl. (7.2-11.1); RBC 2.38 mil/uL (4.50-6.00); RDW-CV 15.7 % (10.5-14.5); WBC 8.4 thou/uL (4.0-11.0)
[2017-11-19 03:47] LABS: ALBUMIN 2.3 g/dL (3.4-5.0); CALCIUM 7.8 mg/dL (8.5-10.1); TOTAL BILIRUBIN 0.3 mg/dL (<0.1-1.0); TOTAL PROTEIN 6.7 g/dL (6.4-8.2)
[2017-11-19 04:06] LABS: CREATININE 9.3 mg/dL (0.6-1.3)
[2017-11-19 08:20] VITALS: BP 146/52
[2017-11-19 16:33] VITALS: BP 145/57
[2017-11-19 23:07] LABS: HEPATITIS B SURFACE AG Negative (Negative)
[2017-11-20] VITALS: BP 144/53
[2017-11-20 02:43] VITALS: BP 133/73; BP 144/53
[2017-11-20 04:42] LABS: HEMATOCRIT 23.2 % (42.0-52.0); HEMOGLOBIN 7.8 gm/dL (14.0-18.0); MCH 34.1 pg (26.0-34.0); MCHC 33.6 g/dL (28.0-37.0); MCV 101.6 fL (80.0-100.0); MPV 10.8 fl. (7.2-11.1); RBC 2.29 mil/uL (4.50-6.00); RDW-CV 15.6 % (10.5-14.5); WBC 8.1 thou/uL (4.0-11.0)
[2017-11-20 04:49] LABS: CALCIUM 8.7 mg/dL (8.5-10.1); POTASSIUM 5.3 mmol/L (3.5-5.1); TOTAL BILIRUBIN 0.3 mg/dL (<0.1-1.0); TOTAL PROTEIN 6.9 g/dL (6.4-8.2)
[2017-11-20 04:59] LABS: ALBUMIN 2.3 g/dL (3.4-5.0); CREATININE 4.8 mg/dL (0.6-1.3)
[2017-11-20 08:05] VITALS: BP 135/42
--- NOTE | 2017-11-20 11:07 | CON ---
[address] [address] CONSULTATION Name: APOLONIAMERY PADMA Room: [address] IN M.R.#: [id number] Admission: 11/17/17 Attend Phys: Butch Rueda Discharge: Date of : 34 Report #: [id number] THIS REPORT FOR: //name// CC: Linda Villa DATE OF SERVICE: 11/19/2017 INFECTIOUS DISEASES CONSULTATION ATTENDING PHYSICIAN: Dr. Villa. REASON FOR EVALUATION: Progressive weakness. HISTORY OF PRESENT ILLNESS: The patient underwent dialysis, has kind of associated shortness of breath, had fevers recorded up to an excess of 102.5, has noted some black tarry stools as well. Evaluation showed changes on the x-ray that felt were chronic. CBC, white count was initially normal. C. diff toxin assay was negative. Cultures are pending. He was empirically started on ceftriaxone and levofloxacin. He is moderately uncomfortable. Denies significant pulmonary-related complaints. ALLERGIES: SULFA. CURRENT MEDICATIONS: Include pantoprazole, mirtazapine, atorvastatin, levalbuterol and ipratropium inhaler, gemfibrozil, clonazepam, metoprolol, fish oil, finasteride, allopurinol, levothyroxine, acetaminophen and levofloxacin. 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 He has a known coronary artery disease with previous aortocoronary bypass grafting 20 years ago, has underlying O2 requiring COPD, 2 liters, hypertension, peripheral neuropathy, atrial fibrillation, history of depression, previous cholecystectomy. SOCIAL HISTORY: Former smoker. No ethanol. FAMILY HISTORY: Noncontributory. REVIEW OF SYSTEMS: As above. PHYSICAL EXAMINATION: GENERAL: He is in moderate distress, appears chronically ill, undernourished. VITAL SIGNS: Temperature 99.4, again T-max 102.8 recorded on , pulse 75, respirations 18, blood pressure 146/52. SKIN: Warm, dry, no rashes. HEENT: Otherwise, unremarkable. Nasal [place] [address] CONSULTATION Name: MERY BARKSDALE Room: [address] IN [facility]#: [id number] Admission: 11/17/17 Attend Phys: Butch Rueda Discharge: Date of : 34 Report #: [id number] NECK: Supple. LUNGS: A few basilar crackles. HEART: Regular. ABDOMEN: Soft. There is nothing for peritonitis. GENITOURINARY: Deferred. RECTAL: Deferred. LABORATORY DATA: Initial lactic acid 1.2. Initial sodium 137, potassium 4.2, chloride 96, bicarbonate is 33, BUN and creatinine 33 and 5.2. LFTs unremarkable. Albumin of 2.8. Total protein 7.5. Chest x-ray showed changes in the bases felt to be scarring, little changed from September 2016. CBC with white count of 10.3, H and H and 9.3 and 27.7, platelets of 160. C. diff was negative. CRP elevated at 408.9. Blood cultures sterile thus far. ASSESSMENT: Febrile illness. The patient is on dialysis. Certainly, a wide differential in this setting can entirely exclude pulmonary related sources, certainly has an abnormal x-ray, has had history of Enterococcus septicemia. Blood cultures are sterile thus far. Did have what appears to be rigors. We will send off a pneumococcal antigen. CT abdomen and pelvis has been ordered, his chest, I think imaging is warranted. We will continue empiric antimicrobial therapy. At this point, he is not overtly toxic and see how he does clinically. <ELECTRONICALLY SIGNED> By: Alok Aranda MD 11/20/17 1107 1542 [id number] Aranda MD /nt
[2017-11-20 13:05] VITALS: BP 137/50
[2017-11-20 16:00] VITALS: BP 129/43
[2017-11-20 19:30] VITALS: BP 108/24
[2017-11-21 07:30] VITALS: BP 122/43
[2017-11-21 16:00] VITALS: BP 119/44
[2017-11-21 18:09] VITALS: BP 122/43
[2017-11-22 01:30] VITALS: BP 132/43
[2017-11-22 08:00] VITALS: BP 135/50
[2017-11-22 16:00] VITALS: BP 129/42
--- NOTE | 2017-11-26 11:36 | CON ---
[address] [address] CONSULTATION Name: APOLONIAMERY ROUSE Room: [address] IN M.R.#: [id number] Admission: 11/17/17 Attend Phys: Butch Rueda Discharge: 11/22/17 Date of : 34 Report #: [id number] THIS REPORT FOR: //name// CC: Linda Villa DATE OF SERVICE: 11/18/2017 REQUESTING PHYSICIAN: Deyanira Villa MD REASON FOR CONSULTATION: Assist in providing dialysis. HISTORY OF PRESENT ILLNESS: The patient is a very pleasant 82-year-old gentleman with medical history significant for end-stage renal disease. He is on chronic dialysis on Friday, Friday, and Friday schedule. He did have his dialysis on Friday. He presents with complaints of fever, weakness, and abdominal pain. He also has some runny nose, no sore throat, no chest pain, no cough. He produces a very little amount of urine. Denies any dysuria. PAST MEDICAL HISTORY: 1. End-stage renal disease. 2. Coronary artery disease. 3. Chronic obstructive pulmonary disease. 4. Hypertension. 5. Diastolic heart failure. 6. Sick sinus syndrome. FAMILY HISTORY: Noncontributory. SOCIAL HISTORY: Noncontributory. PHYSICAL EXAMINATION: GENERAL: Awake, alert, and oriented. VITAL SIGNS: Blood pressure 125/34, heart rate 68, afebrile now. Maximal temperature was 39.3. HEENT: Pupils are round. NECK: Fatty. LUNGS: Clear. CARDIOVASCULAR: Regular rate. ABDOMEN: Soft. Mildly distended. LOWER EXTREMITIES: Trace edema. LABORATORY DATA: Hemoglobin 9.3, white count 10.3, sodium 137, potassium 4.2, BUN 33, and creatinine 5.2. ASSESSMENT: An 82-year-old gentleman with end-stage renal disease, [place] [address] CONSULTATION Name: MERY BARKSDALE Room: [address]#: [id number] Admission: 11/17/17 Attend Phys: Butch Rueda Discharge: 11/22/17 Date of : 34 Report #: [id number] fever, abdominal pain and diarrhea. Workup is in progress. I will set up for dialysis for tomorrow. <ELECTRONICALLY SIGNED> By: Greg Jc MD 11/26/17 1136 1146 1737Abowen Jc MD /nt
--- NOTE | 2017-12-04 13:22 | CON ---
[address] [address] CONSULTATION Name: APOLONIAMERYBHAVESH ROUSE Room: [address] IN M.R.#: [id number] Admission: 11/17/17 Attend Phys: Butch Rueda Discharge: 11/22/17 Date of : 34 Report #: [id number] THIS REPORT FOR: //name// CC: Linda Villa HISTORY OF PRESENT ILLNESS: This is a pleasant 82-year-old gentleman with past medical history of hypertension, hyperlipidemia, diabetes, and chronic kidney disease on dialysis, Friday, Friday, and Friday, who is presenting for evaluation of dark colored stools. The patient reports that he began noticing dark colored stools about 2 days back. He reports the stools are loose, sticky and runny and black in color. He denies previous such episodes in the past. He denies any significant abdominal pain, nausea or vomiting. He denies seeing bright red color blood or any recent weight loss. The patient does report that he had prior GI bleed 4-5 years back, at which time, both upper and lower endoscopy were performed and were unremarkable. PAST MEDICAL HISTORY: As mentioned before, the patient has history of hypertension, hyperlipidemia, diabetes, is on alternate hemodialysis. PAST SURGICAL HISTORY: The patient has had cholecystectomy, AV fistula placement and hip replacement 18 years back. FAMILY HISTORY: Reviewed and not significant. SOCIAL HISTORY: The patient quit smoking 8 years back, quit alcohol about 20 years back and denies recreational drug use. REVIEW OF SYSTEMS: A comprehensive 10-point review of systems is negative except for symptoms mentioned in the HPI. PHYSICAL EXAMINATION: VITAL SIGNS: Temperature 37.1, pulse rate 83, respirations 16, blood pressure 147/57, pulse ox 97% on 2 L. GENERAL: The patient is alert, awake, oriented times 3. HEENT: Mucous membranes are moist. There is no congestion. LUNGS: Clear to auscultation bilaterally. CARDIOVASCULAR: Irregularly irregular. NECK: Supple. There is no supraclavicular lymphadenopathy. ABDOMEN: Soft. There is distention, but no tenderness, no organomegaly. Bowel sounds are normal. EXTREMITIES: Warm, well perfused. There is actually no pitting edema. NEUROLOGIC: No focal neurological deficit. SKIN: [place] [address] CONSULTATION Name: MERY BARKSDALE Room: [address] IN [facility].#: [id number] Admission: 11/17/17 Attend Phys: Butch Rueda Discharge: 11/22/17 Date of : 34 Report #: [id number] LABORATORY DATA: Hemoglobin 8.1, hematocrit 24.3, MCV 102, platelet count 148, WBC count 8.4. Sodium 137, potassium 5.0, chloride 97, bicarbonate 27, BUN 70, creatinine 9.3. Iron 29, iron saturation 12%, TIBC 237, ferritin 394, AST 22, ALT 12, alkaline phosphatase 45, total bilirubin 0.3, vitamin B12 464, lipase 12. ASSESSMENT: This is a pleasant 82-year-old male with past medical history significant for coronary artery disease, diabetes, hypertension, hyperlipidemia, chronic kidney disease, on alternate hemodialysis, is presenting for evaluation of dark-colored stools. 1. Acute gastrointestinal hemorrhage. 2. Iron deficiency anemia. 3. Anemia of chronic disease. I suspect the patient has multifactorial anemia including iron deficiency anemia. Due to his reports of melena, endoscopic evaluation is warranted. An esophagogastroduodenoscopy and colonoscopy will be performed tomorrow. Further recommendations will be based on the results of these tests. <ELECTRONICALLY SIGNED> By: Jaspreet Elizabeth MD 12/04/17 1322 1745 [id number] Elizabeth MD /nt
== END 2017-11-22 18:50 | DRG 871 ==
LOC: M.ERS 15:37 → M.TBA-ER 18:54 → M.2W 18:54 → M.3W 11-18 19:51
PROVIDERS: Emergency Medicine Emergency Medical Services; Internal Medicine Nephrology; ADMIT Internal Medicine
PROC: 0DJ08ZZ Inspection of Upper Intestinal Tract, Via Natural or Artificial Opening Endoscopic (ICD-10-PCS; principal; 2017-11-20)
PROC: 0DJD8ZZ Inspection of Lower Intestinal Tract, Via Natural or Artificial Opening Endoscopic (ICD-10-PCS; principal; 2017-11-20)
DX: A41.9 Sepsis, unspecified organism (principal); N18.6 End stage renal disease; J18.9 Pneumonia, unspecified organism; K57.31 Diverticulosis of large intestine without perforation or abscess with bleeding; K55.21 Angiodysplasia of colon with hemorrhage; I13.2 Hypertensive heart and chronic kidney disease with heart failure and with stage 5 chronic kidney disease, or end stage renal disease; I50.30 Unspecified diastolic (congestive) heart failure; J44.0 Chronic obstructive pulmonary disease with (acute) lower respiratory infection; J20.9 Acute bronchitis, unspecified; I25.10 Atherosclerotic heart disease of native coronary artery without angina pectoris; I49.5 Sick sinus syndrome; E78.5 Hyperlipidemia, unspecified; E11.22 Type 2 diabetes mellitus with diabetic chronic kidney disease; B34.9 Viral infection, unspecified; D12.3 Benign neoplasm of transverse colon; D63.1 Anemia in chronic kidney disease; D50.9 Iron deficiency anemia, unspecified; E11.51 Type 2 diabetes mellitus with diabetic peripheral angiopathy without gangrene; E11.42 Type 2 diabetes mellitus with diabetic polyneuropathy; I48.91 Unspecified atrial fibrillation; F32.9 Major depressive disorder, single episode, unspecified; D63.8 Anemia in other chronic diseases classified elsewhere; Z96.641 Presence of right artificial hip joint; Z99.2 Dependence on renal dialysis; Z90.49 Acquired absence of other specified parts of digestive tract; Z95.1 Presence of aortocoronary bypass graft; Z87.891 Personal history of nicotine dependence; Z79.82 Long term (current) use of aspirin; Z79.899 Other long term (current) drug therapy; Z88.2 Allergy status to sulfonamides

== ENCOUNTER 2017-12-11 18:16 | Emergency (ER) | payer OTHER ==
[~2017-12-11] VITALS: Ht 175.3 cm; Wt 96.2 kg
[2017-12-11 18:37] LABS: HEMATOCRIT 36.1 % (42.0-52.0); HEMOGLOBIN 11.8 gm/dL (14.0-18.0); MCH 34.5 pg (26.0-34.0); MCHC 32.7 g/dL (28.0-37.0); MCV 105.4 fL (80.0-100.0); MPV 10.4 fl. (7.2-11.1); NUCLEATED RBCS 0 /100WBC; PLATELET COUNT* 130 thou/uL (150-400); RBC 3.43 mil/uL (4.50-6.00); RDW-CV 20.5 % (10.5-14.5); WBC 4.3 thou/uL (4.0-11.0)
[2017-12-11 18:41] LABS: CALCIUM 8.9 mg/dL (8.5-10.1); CREATININE 6.8 mg/dL (0.6-1.3); POTASSIUM 4.4 mmol/L (3.5-5.1)
[2017-12-11 18:46] LABS: ALBUMIN 3.9 g/dL (3.4-5.0); TOTAL BILIRUBIN 0.4 mg/dL (<0.1-1.0)
[2017-12-11 19:11] LABS: ABSOLUTE EOSINOPHILS 0.2 thou/uL (0.0-0.7); ABSOLUTE LYMPHOCYTES 1.5 thou/uL (0.8-5.3); ABSOLUTE MONOCYTES 0.3 thou/uL (0.0-1.2); ABSOLUTE NEUTROPHILS 2.4 thou/uL (1.6-8.1); ANISOCYTOSIS 1+; MACROCYTES 1+; PLATELET ESTIMATE DECREASED
[2017-12-11] MEDS ORDERED: ZOFRAN4 MG PO (20:24)
[2017-12-11 20:54] VITALS: BP 114/63
--- NOTE | 2017-12-12 10:38 | EKG ---
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1935 Requested By: Devi Mcpherson Order Number: [id number] MD: Raffi Johnson Measurements Intervals [place] Rate: 56 P: 45 SD: 315 QRS: 6 QRSD: 154 T: 167 QT: 475 QTc: 459 Interpretive Statements Sinus rhythm Prolonged SD interval Left bundle branch block Compared to ECG 11/17/2017 15:39:40 First degree AV block now present Electronically Signed On 12-12-2017 10:37:49 CDT by Raffi Johnson [email or web address] <ELECTRONICALLY SIGNED> By: Raffi Johnson MD, [facility]IN [facility] 12/12/17 [facility] 15 15 Raffi Johnson MD, FACC /EPI
== END 2017-12-11 20:55 | disposition home or self-care (01) ==
LOC: M.ERS 18:16
PROVIDERS: Nurse Practitioner Family
DX: R10.84 Generalized abdominal pain (principal); R11.2 Nausea with vomiting, unspecified; R19.7 Diarrhea, unspecified; I48.91 Unspecified atrial fibrillation; F32.9 Major depressive disorder, single episode, unspecified; E11.40 Type 2 diabetes mellitus with diabetic neuropathy, unspecified; I12.9 Hypertensive chronic kidney disease with stage 1 through stage 4 chronic kidney disease, or unspecified chronic kidney disease; E11.22 Type 2 diabetes mellitus with diabetic chronic kidney disease; N18.9 Chronic kidney disease, unspecified; Z99.2 Dependence on renal dialysis; J44.9 Chronic obstructive pulmonary disease, unspecified; Z87.891 Personal history of nicotine dependence; Z88.2 Allergy status to sulfonamides; Z95.1 Presence of aortocoronary bypass graft; Z95.5 Presence of coronary angioplasty implant and graft; Z96.641 Presence of right artificial hip joint

== ENCOUNTER 2018-07-24 11:26 | Emergency (ER) | payer OTHER ==
[~2018-07-24] VITALS: Ht 172.7 cm; Wt 85.7 kg
[~2018-07-24 11:26] MED LIST changes: +ZOFRAN4 MG PO
[2018-07-24] MEDS ORDERED: CLEOCIN HCL300 MG PO (12:42)
[2018-07-24 12:50] VITALS: BP 132/84
== END 2018-07-24 12:53 | disposition home or self-care (01) ==
LOC: M.ERS 11:26
DX: L03.011 Cellulitis of right finger (principal); I48.91 Unspecified atrial fibrillation; J44.9 Chronic obstructive pulmonary disease, unspecified; F32.9 Major depressive disorder, single episode, unspecified; E11.40 Type 2 diabetes mellitus with diabetic neuropathy, unspecified; I12.9 Hypertensive chronic kidney disease with stage 1 through stage 4 chronic kidney disease, or unspecified chronic kidney disease; E11.22 Type 2 diabetes mellitus with diabetic chronic kidney disease; N18.9 Chronic kidney disease, unspecified; Z99.2 Dependence on renal dialysis; Z96.641 Presence of right artificial hip joint; Z95.1 Presence of aortocoronary bypass graft; Z95.5 Presence of coronary angioplasty implant and graft; Z87.891 Personal history of nicotine dependence; Z88.2 Allergy status to sulfonamides